=== PATIENT | female | born 1955 | race Caucasian/White ===

== ENCOUNTER 2017-06-29 22:06 | Emergency (ER) | payer OTHER ==
[~2017-06-29] VITALS: Ht 172.7 cm; Wt 110.2 kg
[~2017-06-29 22:06] MED LIST: ACTOS15 M1 PO; AMLODIPINE10 MG PO; ATORVASTATIN CA40 M1 PO; BAYER ASPIRIN C81 MG PO; CARVEDILOL PO; CARVEDILOL6.25 MG PO; CELEXA10 MG; CELEXA20 MG PO; CIPRO500 MG PO; CIPROFLOXACIN500 MG PO; CLONIDINE0.2 MG PO; COREG6.25 MG PO; DARVOCET N 1001 TAB PO; DICLOFENAC POT.50 MG PO; ECPIRIN325 MG PO; FARXIGA5 M1 PO; GLIMEPIRIDE4 M1 PO; GLYBURIDE1 CRY; GLYBURIDE5 MG PO; HYDROCHLOROTHIA25 M1 PO; LEVOTHYROXIN0.088 M1 PO; LEVOTHYROXINE0.05 MG PO; LISINOPRIL10 MG PO; LISINOPRIL2.5 MG; LISINOPRIL40 MG PO; METFORMIN1000 MG PO; METFORMIN500 MG PO; MOTRIN400 MG PO; MOTRIN800 MG PO; Oxycodone/Apap1 TA1; PEPCID20 MG PO; PRAVACHOL40 MG PO; SERTRALINE HYDR50 MG PO; TRAD5TAB1 PO; VICODIN 5/500 505 MG PO; VITAMINS FOR HA1 CAP PO
[2017-06-29] MEDS ORDERED: CEPHALEXIN500 M1 PO (22:19)
== END 2017-06-29 22:52 | disposition home or self-care (01) ==
LOC: ED 22:06
DX: S50.862A Insect bite (nonvenomous) of left forearm, initial encounter (principal); E11.65 Type 2 diabetes mellitus with hyperglycemia; W57.XXXA Bitten or stung by nonvenomous insect and other nonvenomous arthropods, initial encounter; Y93.89 Activity, other specified; Y92.89 Other specified places as the place of occurrence of the external cause; Y99.8 Other external cause status

== ENCOUNTER 2018-06-10 20:34 | Inpatient (IN) | payer OTHER ==
[~2018-06-10] VITALS: Ht 172.7 cm; Wt 104.1 kg
--- NOTE | ~2018-06-10 | EKG ---
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: Lyudmila Perez : 1955 Requested By: YOUSUF FINCH Order Number: [id number] Reading MD: Hudson Mejía MD Measurements Intervals [place] Rate: 61 P: 116 [place]: 158 QRS: 30 QRSD: 97 T: 195 QT: 392 QTc: 395 Interpretive Statements Sinus rhythm Repol abnrm suggests ischemia, anterolateral Minimal ST elevation, anterior leads Baseline wander in lead(s) V3 Compared to ECG 05/21/2018 00:54:36 ST (T wave) deviation now present Atrial premature complex(es) no longer present Possible ischemia still present Electronically Signed On 06-14-2018 4:00:05 PDT by Hudson Mejía MD CM:EKGRPT:ELECTROCARDIOGRAM REPORT [id number] 0400 YOUSUF DURANT DRAFT REPORT YOUSUF FINCH DO
--- NOTE | ~2018-06-10 | CON ---
[place], [place] REPORT OF CONSULTATION NAME: [facility]ED [facility]AVEZ [id number] UNIT #: [id number] ROOM: 526 DOCTOR: FRANCHESKA COLE MD BIRTHDATE: [birth year] DOS: 06/11/2018 HISTORY OF PRESENT ILLNESS: This is a 63-year-old -Q[place] woman with a history of coronary artery disease. She had a 3-vessel coronary artery bypass graft surgery in 2012 in [place] and presented to this hospital 05/20/2018 with dizziness, weakness, and bradycardia. She has second degree heart block. Her troponin level was slightly elevated and she was taken to [facility] where a diagnostic heart cath was performed and the coronary was stented. The findings were patent left main coronary artery, 100% occlusion of the LAD with widely patent MAGUIRE to this vessel, 100% occlusion of proximal circumflex artery with patent vein graft to OM branch of the circumflex, but with 95% stenosis just distal to the anastomotic site, which was treated with a 2.25 x 20 mm drug-eluting stent reducing the stenosis to 0%. The right coronary artery had 100% occlusion in the mid segment with a patent vein graft to the posterior descending artery of the right coronary artery. She now presented to the hospital because of increasing shortness of breath and also fatigue and shortness of breath. She had shortness of breath even before intervention was done and shortness of breath persisted. When she walks, she gets fairly tired and short of breath. She has not had any PND, orthopnea, or swelling of the lower extremities. Heart flips every now and then, but no rapid beat. There has not been any loss of consciousness. She is generally very tired and run down, very depressed. She lost her on 2017 and it was a sudden . He had enjoyed good health previously. She is having very tough time dealing with this. PAST MEDICAL HISTORY: Type 2 diabetes mellitus, essential hypertension, hyperlipidemia, coronary artery disease as described above. She has had appendectomy and couple of times and went to surgery for toenails. She has never had any kidney problems, COPD, or cancer. SOCIAL HISTORY: She never smoked cigarettes. No alcohol use. She lives at home alone. HOME MEDICATIONS: Amlodipine 5 mg daily, aspirin 81 daily, atorvastatin 80 daily, Zetia 10 mg daily, famotidine 20 mg b.i.d., gabapentin 300 q. 8h, hydrochlorothiazide 25 daily, levothyroxine 88 mcg daily, lisinopril 40 daily, metoprolol 12.5 mg daily, sertraline 100 mg daily, ticagrelor 90 mg b.i.d. and sublingual nitroglycerin p.r.n., insulin glargine, and insulin lispro. PHYSICAL EXAMINATION: GENERAL: This reveals a patient who is moderately obese. She is very pleasant, but under emotional distress. Her complexion is fine. There is no anemia, jaundice or cyanosis. There is no thyromegaly or finger clubbing. VITAL SIGNS: Temperature is normal at 98.1 degrees, pulse is 72 and regular, blood pressure 156/72. NECK: JVP is normal. AJR is negative. There is no carotid bruit. HEART: There is no cardiomegaly. Murmurs are present. Excellent pedal pulses and no edema of the lower extremities: [place], [place] REPORT OF CONSULTATION NAME: NED CHAVEZ UNIT #: [id number] ROOM: 526 DOCTOR: FRANCHESKA COLE MD BIRTHDATE: [birth year] RESPIRATORY: Lungs are clear to percussion and auscultation with excellent breath sounds. ABDOMEN: Supple, nontender, and no organomegaly. There is no bruit or pulsatile mass. DIAGNOSTIC STUDIES: ECG shows normal sinus rhythm at 861 beats per minute with minimal ST segment depression V4-V6 and in 1 and aVL. These are chronic findings which she had even before heart catheterization was done last month (LAD had patent MAGUIRE graft with troponin I level is normal). IMPRESSION: 1. Dyspnea of exertion. This patient has normal LV systolic function with an LV ejection fraction of 65%, either it is diastolic dysfunction that is causing shortness of breath or more likely ticagrelor may be responsible for this as it is one of its side effects. 2. Hypertension, probably needs the better control. 3. Secondary heart block that she had last month has resolved and may have been ischemia driven. Her heart rate is fine now. RECOMMENDATIONS: 1. Discontinue ticagrelor and replace it clopidogrel [address] Gamino had discontinued metoprolol and placed her on carvedilol 6.25 mg b.i.d., which is appropriate. 3. She should continue on amlodipine, dose can be increased. Her blood pressure has not been controlled adequately in this diabetic patient. 4. From cardiac standpoint, the patient can be discharged home after ambulation. 4. Bereavement. She is still in tremendous amount of emotional pain from her 's . I think some formal counseling may be of some help to her. I thank you for this consult. FRANCHESKA COLE MD CM:CONSTR:REPORT OF CONSULTATION 1058 06/11/18 1530 interface
--- NOTE | ~2018-06-10 | EKG ---
[place], [place] ELECTROCARDIOGRAM REPORT NAME: NED CHAVEZ UNIT #: [id number] ROOM: 526 DOCTOR: ARNOLD DRAFT REPORT BIRTHDATE: [birth year] [facility] Test Date: 2018-06-11 Test Time: 03:53:02 Pat Name: NED CHAVEZ Department: Room: 526 Gender: F Vocational Evaluator: : 1955 Requested By: YOUSUF FINCH Order Number: [id number] Reading MD: Hudson Mejía MD Measurements Intervals [place] Rate: 63 P: 126 GA: 150 QRS: 42 QRSD: 99 T: 187 QT: 439 QTc: 450 Interpretive Statements Sinus rhythm Nonspecific repol abnormality, diffuse leads Baseline wander in lead(s) V6 Compared to ECG 05/21/2018 00:54:36 Atrial premature complex(es) no longer present Possible ischemia no longer present Electronically Signed On 06-14-2018 4:00:11 PDT by Hudson Mejía MD CM:EKGRPT:ELECTROCARDIOGRAM REPORT [id number] 0400 YOUSUF DURANT DRAFT REPORT YOUSUF FINCH DO
--- NOTE | ~2018-06-10 | EKG ---
[place], [place] ELECTROCARDIOGRAM REPORT NAME: NED CHAVEZ UNIT #: [id number] ROOM: 526 DOCTOR: ARNOLD DRAFT REPORT BIRTHDATE: [birth year] [facility] Test Date: 2018-06-10 Test Time: 21:05:27 Pat Name: NED CHAVEZ Department: Room: 526 Gender: F Owner Operator: ARTURO : 1955 Requested By: MARK NASSAR PA-C Order Number: [id number] Reading MD: Hudson Mejía MD Measurements Intervals [place] Rate: 56 P: 37 ID: 157 QRS: 20 QRSD: 91 T: 161 QT: 420 QTc: 406 Interpretive Statements Sinus rhythm Atrial premature complex Repol abnrm suggests ischemia, lateral leads Compared to ECG 05/21/2018 00:54:36 No significant changes Electronically Signed On 06-16-2018 8:29:37 PDT by Hudson Mejía MD CM:EKGRPT:ELECTROCARDIOGRAM REPORT 04 [id number] MARK NASSAR PA-C EPIPHANY DRAFT REPORT MARK NASSAR PA-C
[~2018-06-10 20:34] MED LIST changes: +ADMELOG SO100 UNIT/1 SQ; +ASPIRIN81 M1 PO; +CEPHALEXIN500 M1 PO; -ECPIRIN325 MG PO; +NEURONTIN300 MG PO; +NITROGLYCERIN0.4 MG SL; +SERTRALINE HYD100 MG PO; -SERTRALINE HYDR50 MG PO; +Synthroid,Levo88 MCG PO; +ZETIA10 MG PO
[2018-06-10 20:37] VITALS: BP 145/54
[2018-06-10 21:34] LABS: BASO # 0.1 10*3/uL (0.0-0.1); BASO % 0.6 % (0.0-1.0); EOS # 0.5 10*3/uL (0.0-0.4); EOS % 5.2 % (1.0-4.0); HEMATOCRIT 36.1 % (37.0-47.0); HEMOGLOBIN 11.6 g/dl (12.0-16.0); LYMPH # 2.1 10*3/uL (1.3-4.4); LYMPH % 24.1 % (27.0-41.0); MEAN CELL VOLUME 89.1 fl (81.0-99.0); MEAN CORPUSCULAR HGB 28.6 pg (27.0-31.0); MEAN CORPUSCULAR HGB CONC 32.1 g/dl (33.0-37.0); MEAN PLATELET VOLUME 10.1 fl (9.6-12.3); MONO # 0.6 10*3/uL (0.1-1.0); MONO % 6.7 % (3.0-9.0); NEUT # 5.4 10*3/uL (2.3-7.9); NEUT % 62.9 % (47.0-73.0); PLATELET COUNT AUTOMATED 271 10*3/uL (130-400); RED BLOOD COUNT 4.05 10*6/uL (4.10-5.10); RED CELL DISTRI WIDTH 13.3 % (0-14.5); WHITE BLOOD COUNT 8.6 10*3/uL (4.8-10.8)
[2018-06-10 21:40] VITALS: BP 143/65
[2018-06-10 21:57] LABS: ALBUMIN 2.9 gm/dl (3.1-4.5); CREATININE 1.13 mg/dL (0.55-1.02); POTASSIUM 3.7 mmol/L (3.5-5.1); TOTAL PROTEIN 7.3 gm/dL (6.4-8.2); TROPONIN I 0.024 ng/ml (<0.045)
[2018-06-10 22:37] VITALS: BP 150/74
--- NOTE | 2018-06-10 22:53 | NUR ---
PT IN BED IN LOW FOWLERS POSITION OF COMFORT DAUGHTER AT BEDSIDE PT DENIES ANY SHORTNESS OF BREATH OF DISCOMFORT WHILE AT REST BED IN LOWEST POSITION BED RAIL UP CALL EID IN REACH PT HAS NO REQUESTS AT THIS TIME
[2018-06-10 23:42] VITALS: BP 150/74
[2018-06-11] VITALS: BP 156/72
--- NOTE | 2018-06-11 00:10 | NUR ---
A 63, admitted to 5E, under the services of ERNIE Pierce DO with a diagnosis of HX. CORONARY ARTERY STENT PLACEMENT/DYSPNEA. Chief complaint is SHORTNESS OF BREATH. Patient arrived via stretcher from ER. Monitor applied. Initial assessment completed. Vital signs taken and recorded. ERNIE PIERCE DO notified of admission to the unit. Orders received. See assessment for past medical history, medications and allergies. Patient and/or family oriented to unit. visitation policy reviewed. Clothing/patient valuable form completed. KIMBERLY GRIGSBY
--- NOTE | 2018-06-11 01:50 | NUR ---
DR. FINCH AWARE OF [facility] REC BEING UP TO DATE.
[2018-06-11] MEDS ORDERED: LANTUS SOL100 UNIT/1 SQ ×2 (02:04→13:09)
[2018-06-11] MEDS ORDERED: LOPRESSOR25 MG PO (02:08)
[2018-06-11] MEDS ORDERED: BRILINTA90 M1 PO (02:08)
[2018-06-11] MEDS ORDERED: NORVASC5 MG PO (02:10)
[2018-06-11 06:22] LABS: BASO # 0.1 10*3/uL (0.0-0.1); BASO % 0.5 % (0.0-1.0); EOS # 0.1 10*3/uL (0.0-0.4); HEMATOCRIT 38.6 % (37.0-47.0); HEMOGLOBIN 12.1 g/dl (12.0-16.0); LYMPH # 1.2 10*3/uL (1.3-4.4); LYMPH % 12.2 % (27.0-41.0); MEAN CELL VOLUME 88.9 fl (81.0-99.0); MEAN CORPUSCULAR HGB 27.9 pg (27.0-31.0); MEAN CORPUSCULAR HGB CONC 31.3 g/dl (33.0-37.0); MEAN PLATELET VOLUME 10.5 fl (9.6-12.3); MONO # 0.1 10*3/uL (0.1-1.0); MONO % 1.4 % (3.0-9.0); NEUT # 8.1 10*3/uL (2.3-7.9); NEUT % 84.6 % (47.0-73.0); PLATELET COUNT AUTOMATED 273 10*3/uL (130-400); RED BLOOD COUNT 4.34 10*6/uL (4.10-5.10); RED CELL DISTRI WIDTH 13.3 % (0-14.5); WHITE BLOOD COUNT 9.6 10*3/uL (4.8-10.8)
[2018-06-11 06:54] LABS: BUN 26 mg/dl (7-24); CHLORIDE 109 mmol/L (98-107); CHOLESTEROL 125 mg/dL (<200); CREATININE 1.06 mg/dL (0.55-1.02); HDL CHOLESTEROL 48 mg/dl (40-60); LDL CHOLESTEROL 57 mg/dL (9-159); PHOSPHOROUS 2.6 mg/dL (2.5-4.9); SODIUM 140 mmol/L (136-145); TRIGLYCERIDES 102 mg/dl (<150); VLDL CHOLESTEROL 20 mg/dL (6-40)
[2018-06-11 07:01] LABS: THYROID STIM HORMONE (HS) 0.131 uIU/ml (0.358-4.75)
[2018-06-11 08:00] VITALS: BP 142/58
--- NOTE | 2018-06-11 08:30 | NUR ---
DR QUIÑONEZ CALLED CONSULT INFO GIVEN, NEW ORDERS RECEIVED.
[2018-06-11 12:00] VITALS: BP 128/67
[2018-06-11] MEDS ORDERED: CLOPIDOGREL75 MG PO (13:09)
[2018-06-11 16:00] VITALS: BP 141/60
--- NOTE | 2018-06-11 19:20 | NUR ---
PT IS AWAKE AND SITTING UP IN BED. NO S/S OF DISTRESS NOTED. WILL CONTINUE TO MONITOR.
--- NOTE | 2018-06-11 19:38 | NUR ---
24 HR CHART CHECK COMPLETE.
--- NOTE | 2018-06-11 19:38 | NUR ---
24 HR CHART CHECK COMPLETE.
[2018-06-11 20:57] VITALS: BP 152/68
[2018-06-12] VITALS: BP 124/58
[2018-06-12 08:00] VITALS: BP 129/50
--- NOTE | 2018-06-12 08:15 | NUR ---
PATIENT RESTING QUIETLY IN BED. NO DISTRESS NOTED. RESPIRATIONS EASY, REGULAR ON RA. DENIES ANY SOB. DENIES ANY PAIN/DISCOMFORT AT THIS TIME. EAGER FOR DISCHARGE. WILL CONTINUE TO MONITOR. VSS. CALL LIGHT WITHIN REACH.
[2018-06-12 11:59] VITALS: BP 130/51
--- NOTE | 2018-06-12 12:35 | NUR ---
Discharge instructions reviewed with patient/family. Patient receptive and verbalizes understanding. Follow-up care arranged. Written instructions given to patient/family. JOSH HARRIS.
== END 2018-06-12 13:25 | disposition home or self-care (01) | DRG 880 ==
LOC: ED 20:34 → EDHOLD 23:08 → 5E 23:43
PROVIDERS: Physician Assistant; Student in an Organized Health Care Education/Training Program; ADMIT Emergency Medicine
DX: F41.9 Anxiety disorder, unspecified (principal); E44.0 Moderate protein-calorie malnutrition; N30.00 Acute cystitis without hematuria; R07.89 Other chest pain; R00.1 Bradycardia, unspecified; D64.9 Anemia, unspecified; E87.8 Other disorders of electrolyte and fluid balance, not elsewhere classified; E11.65 Type 2 diabetes mellitus with hyperglycemia; E03.9 Hypothyroidism, unspecified; E78.5 Hyperlipidemia, unspecified; I25.10 Atherosclerotic heart disease of native coronary artery without angina pectoris; I44.1 Atrioventricular block, second degree; F32.9 Major depressive disorder, single episode, unspecified; N18.3 Chronic kidney disease, stage 3 (moderate); I12.9 Hypertensive chronic kidney disease with stage 1 through stage 4 chronic kidney disease, or unspecified chronic kidney disease; E11.22 Type 2 diabetes mellitus with diabetic chronic kidney disease; E66.9 Obesity, unspecified; Z95.1 Presence of aortocoronary bypass graft; Z91.041 Radiographic dye allergy status; Z88.5 Allergy status to narcotic agent; Z79.899 Other long term (current) drug therapy; Z79.4 Long term (current) use of insulin; I25.2 Old myocardial infarction; Z98.891 History of uterine scar from previous surgery; Z90.49 Acquired absence of other specified parts of digestive tract; Z95.5 Presence of coronary angioplasty implant and graft; Z79.82 Long term (current) use of aspirin; Z68.34 Body mass index [BMI] 34.0-34.9, adult

== ENCOUNTER 2018-06-20 03:47 | Inpatient (IN) | payer OTHER ==
[2018-06-20] VITALS (11 sets, daily range): BP systolic 118–159; BP diastolic 47–92
[~2018-06-20] VITALS: Ht 172.7 cm; Wt 106.3 kg
--- NOTE | ~2018-06-20 | EKG ---
[place], [place] ELECTROCARDIOGRAM REPORT NAME: NED CHAVEZ UNIT #: [id number] ROOM: 515 DOCTOR: ARNOLD DRAFT REPORT BIRTHDATE: [birth year] [facility] Test Date: 2018-06-20 Test Time: 03:51:28 Pat Name: NED CHAVEZ Department: Room: [facility] Gender: F Opto Mechanical Technician: Lyudmila Perez : 1955 Requested By: DANA SCHWARTZ Order Number: [id number] Reading MD: Cherri Rucker MD Measurements Intervals [place] Rate: 134 P: SD: QRS: 44 QRSD: 88 T: 228 QT: 252 QTc: 376 Interpretive Statements Atrial fibrillation Repol abnrm suggests ischemia, diffuse leads Compared to ECG 06/11/2018 03:53:02 Possible ischemia now present Sinus rhythm no longer present Electronically Signed On 06-22-2018 14:43:15 PDT by Cherri Rucker MD CM:EKGRPT:ELECTROCARDIOGRAM REPORT [id number] 1443 DANA DURANT DRAFT REPORT DANA SCHWARTZ DO
--- NOTE | ~2018-06-20 | EKG ---
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
--- NOTE | ~2018-06-20 | CON ---
[place], [place] REPORT OF CONSULTATION [id number] UNIT #: [id number] ROOM: 515 DOCTOR: FRANCHESKA COLE MD BIRTHDATE: [birth year] DOS: This patient was discharged from this hospital on 06/12/2018. HISTORY OF PRESENT ILLNESS: She is a 63-year-old -Luxembourger woman who has not had any atrial fibrillation previously. She does have coronary artery disease and had a 3-vessel CABG in 2012 in [place] and in May of this year, she was found to be in second-degree heart block and was taken to [facility], where she had a diagnostic heart catheterization because her troponin level was slightly increased and she had EKG abnormality. She was found to have a totally occluded LAD with a widely patent MAGUIRE graft to it and occluded RCA with widely patent vein graft to it and occluded circumflex with patent vein graft to OM branch and the branch had severe stenosis and a 2.25 x 20 mm drug-eluting stent was deployed at that time. LV ejection fraction was normal. Second-degree heart block pretty much resolved. She had a temporary pacemaker for a couple of days. She has type 2 diabetes mellitus, essential hypertension, hyperlipidemia, has had appendectomy in the past, but no kidney problems, COPD. She does not smoke nor does she drink alcoholic beverages. She lives at home. She was discharged from this hospital about 10 days ago. Last night, she woke up with palpitation where her heart was racing and did not have any chest pain, but perhaps she was slightly short of breath and her daughter brought her to the Emergency Department, where she was found to be in atrial fibrillation. She was given 20 mg of diltiazem intravenously and then reverted to normal sinus rhythm without any recurrence. She has occasional flipping of the heart even now, but had no chest pain or breathing difficulty. No PND, orthopnea, or swelling of the lower extremities. HOME MEDICATIONS: Include amlodipine 5 mg daily, aspirin 81 daily, atorvastatin 80 at bedtime, clopidogrel 75 mg daily (when she was here 10 days ago, she was complaining of dyspnea, which I thought was due to Brilinta which was discontinued and the symptoms resolved), Zetia 10 mg daily, famotidine 20 mg b.i.d., gabapentin 300 q.8h., hydrochlorothiazide 25 daily, levothyroxine 88 mcg daily, lisinopril 40 mg daily, metoprolol 12.5 mg b.i.d., sertraline 100 mg daily and sublingual nitroglycerin p.r.n., and also takes insulin as Lantus SoloSTAR. PHYSICAL EXAMINATION: GENERAL: The patient is moderately obese, very pleasant, alert. She has got a great smile. She is not anemic, not cyanotic. She is not diaphoretic. VITAL SIGNS: Temperature 98 degrees, pulse is 60 and regular, blood pressure 132/72. NECK: Normal JVP. No bruit in the neck. LUNGS: Clear lungs. No murmurs. HEART: There is no edema in lower extremities. DIAGNOSTIC STUDIES: First ECG in the ER showed atrial fibrillation with ventricular rate of 134 beats per minute with mild ST segment depression in the lateral and inferior leads. She went back to normal sinus rhythm. The subsequent ECG showed minimal ST segment depression in lateral leads, which was [place], [place] REPORT OF CONSULTATION NAME: NED CHAVEZ UNIT #: [id number] ROOM: [facility] DOCTOR: FRANCHESKA COLE MD BIRTHDATE: [birth year] present on previous ECGs. Troponin I level is 0.026, 0.047 and 0.056. IMPRESSION: 1. This patient has paroxysmal atrial fibrillation and is back in normal sinus rhythm. 2. Slightly increased troponin I level, is most likely due to atrial fibrillation with rapid ventricular rate. 3. Coronary artery disease, status post coronary artery bypass graft and a stent to OM branch of the circumflex through the vein graft. RECOMMENDATIONS: This patient's CHADS2-VASC is high and she warrants chronic warfarin therapy. Therefore, Eliquis 5 mg b.i.d. is being started and she needs to be ambulated. An echocardiogram was ordered today and I will review that. She should be able to go home tomorrow. I thank you for this consult. FRANCHESKA COLE MD CM:CONSTR:REPORT OF CONSULTATION 1154 06/21/18 0630 interface
--- NOTE | ~2018-06-20 | PR ---
[place], [place] PROGRESS NOTE NAME: [facility]ED [facility]Z [id number] UNIT #: [id number] ROOM: 515 DOCTOR: VASQUEZ ENRIQUE MD BIRTHDATE: [birth year] DOS: 06/21/2018 SUBJECTIVE: The patient of mine who is being followed by me for many years and that she had an intervention by Dr. Rucker who was director motion picture for me at [place] when she had an acute MT and underwent an intervention and followed that she had significant asystole and respiratory arrest and then she got improved and she was seen by look out tower fire watcher. The patient was in sinus rhythm also had a Holter monitor remained in sinus rhythm. The patient had a brief episode of atrial fibrillation here. Her ejection fraction is very well preserved. She has been started on Eliquis. She was seen by Dr. Rucker who was covering for me yesterday. Right now, she is staying in sinus rhythm. REVIEW OF SYSTEMS: A 6-8 systems reviewed. OBJECTIVE: VITAL SIGNS: Blood pressure is 130/50, heart rate is 55 and sinus. HEENT: Unremarkable. LUNGS: Clear. HEART: Sounds are regular. ABDOMEN: Soft, nontender. NEUROLOGIC: Stable. LABORATORY DATA: Hemoglobin 11.7, hematocrit 36.8. Electrolytes are today's labs are pending. Troponin the peak was 0.54. EKG shows sinus rhythm with nonspecific ST-T changes. IMPRESSION: The patient with paroxysmal atrial fibrillation back into sinus rhythm, history of bypass surgery, recent intervention. The patient has been started on Eliquis. Heart rate is very well controlled. She is already on amlodipine, atorvastatin, metoprolol 12.5 daily, clopidogrel 75 daily and a baby aspirin. Increase activity and we will follow up upon discharge. VASQUEZ ENRIQUE MD CM:PNTRANS [id number] VASQUEZ ENRIQUE MD 06/21/18 0908 interface
--- NOTE | ~2018-06-20 | EKG ---
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
[~2018-06-20 03:47] MED LIST changes: +BRILINTA90 M1 PO; +CLOPIDOGREL75 MG PO; +LANTUS SOL100 UNIT/1 SQ; +LOPRESSOR25 MG PO; +NORVASC5 MG PO
[2018-06-20 04:06] LABS: BASO % 0.5 % (0.0-1.0); EOS # 0.5 10*3/uL (0.0-0.4); HEMATOCRIT 39.6 % (37.0-47.0); HEMOGLOBIN 12.6 g/dl (12.0-16.0); LYMPH # 2.7 10*3/uL (1.3-4.4); LYMPH % 33.3 % (27.0-41.0); MEAN CELL VOLUME 88.8 fl (81.0-99.0); MEAN CORPUSCULAR HGB 28.3 pg (27.0-31.0); MEAN CORPUSCULAR HGB CONC 31.8 g/dl (33.0-37.0); MEAN PLATELET VOLUME 10.4 fl (9.6-12.3); MONO # 0.6 10*3/uL (0.1-1.0); MONO % 7.3 % (3.0-9.0); NEUT # 4.3 10*3/uL (2.3-7.9); NEUT % 52.5 % (47.0-73.0); PLATELET COUNT AUTOMATED 265 10*3/uL (130-400); RED BLOOD COUNT 4.46 10*6/uL (4.10-5.10); RED CELL DISTRI WIDTH 13.1 % (0-14.5); WHITE BLOOD COUNT 8.2 10*3/uL (4.8-10.8)
[2018-06-20 04:16] LABS: ACT PARTIAL THROMBO TIME 23.5 SECONDS (20.8-31.5)
[2018-06-20 04:23] LABS: ALBUMIN 3.1 gm/dl (3.1-4.5); ALKALINE PHOSPHATASE 101 U/L (45-117); BUN 23 mg/dl (7-24); CHLORIDE 113 mmol/L (98-107); CREATININE 1.08 mg/dL (0.55-1.02); POTASSIUM 3.6 mmol/L (3.5-5.1); SGOT/AST 13 IU/L (3-35); SGPT/ALT 20 U/L (12-78); SODIUM 143 mmol/L (136-145); TOTAL PROTEIN 7.4 gm/dL (6.4-8.2)
[2018-06-20 04:24] LABS: TROPONIN I 0.026 ng/ml (<0.045)
--- NOTE | 2018-06-20 04:29 | NUR ---
PLACED PATIENT ON 2L VIA NASAL CANNULA AT THIS TIME FOR COMFORT. PER PATIENT HEART "JUMPING" MAKES HER FEEL IF SHE IS UNABLE TO GET A DEEP BREATH.
[2018-06-20] MEDS ORDERED: LANTUS SOL100 UNIT/1 SQ (06:45)
--- NOTE | 2018-06-20 06:59 | NUR ---
A 63, admitted to , under the services of ASHLEY Bennett DO with a diagnosis of AFIB W/ RVR. Chief complaint is HEART PALPITATIONS. Patient arrived via ambulatory from ER. Monitor applied. Initial assessment completed. Vital signs taken and recorded. ASHLEY BENNETT DO notified of admission to the unit. Orders received. See assessment for past medical history, medications and allergies. Patient and/or family oriented to unit. [facility] visitation policy reviewed. Clothing/patient valuable form completed. CHERIE ALBARADO
--- NOTE | 2018-06-20 06:59 | NUR ---
DR COLE NOTIFIED OF CONSULT.
--- NOTE | 2018-06-20 10:55 | NUR ---
dr taylor aware of elevated trop
[2018-06-21] VITALS: BP 137/51
--- NOTE | 2018-06-21 05:00 | NUR ---
24 HR chart check completed.
--- NOTE | 2018-06-21 05:02 | NUR ---
24 HR chart check completed.
[2018-06-21 06:57] LABS: BASO # 0.1 10*3/uL (0.0-0.1); BASO % 0.7 % (0.0-1.0); EOS # 0.6 10*3/uL (0.0-0.4); EOS % 7.6 % (1.0-4.0); HEMATOCRIT 36.8 % (37.0-47.0); HEMOGLOBIN 11.7 g/dl (12.0-16.0); LYMPH # 2.9 10*3/uL (1.3-4.4); LYMPH % 38.6 % (27.0-41.0); MEAN CELL VOLUME 88.5 fl (81.0-99.0); MEAN CORPUSCULAR HGB 28.1 pg (27.0-31.0); MEAN CORPUSCULAR HGB CONC 31.8 g/dl (33.0-37.0); MEAN PLATELET VOLUME 10.6 fl (9.6-12.3); MONO # 0.6 10*3/uL (0.1-1.0); MONO % 7.4 % (3.0-9.0); NEUT # 3.4 10*3/uL (2.3-7.9); NEUT % 45.4 % (47.0-73.0); PLATELET COUNT AUTOMATED 254 10*3/uL (130-400); RED BLOOD COUNT 4.16 10*6/uL (4.10-5.10); RED CELL DISTRI WIDTH 13.2 % (0-14.5); WHITE BLOOD COUNT 7.4 10*3/uL (4.8-10.8)
[2018-06-21 07:27] LABS: BUN 20 mg/dl (7-24); CHLORIDE 113 mmol/L (98-107); CREATININE 0.88 mg/dL (0.55-1.02); PHOSPHOROUS 2.6 mg/dL (2.5-4.9); POTASSIUM 3.6 mmol/L (3.5-5.1); SODIUM 142 mmol/L (136-145)
[2018-06-21 07:43] LABS: FREE T4 1.12 ng/dl (0.76-1.46)
[2018-06-21 07:48] LABS: THYROID STIM HORMONE (HS) 0.378 uIU/ml (0.358-4.75)
--- NOTE | 2018-06-21 11:34 | NUR ---
Principle Software Engineer in to talk to patient. Patient states lives at HOME with ALONE. There are OUTSIDE steps in the home. Physician: GLORIA PANDA Pharmacy: [facility] Home health services: [facility] Patient's level of ADLs: INDEPENDENT Patient has working utilities: YES DME: NONE Follow-up physician's appointment after d/c: WILL BE MADE BY HOSPITALIST NURSE DIRECTOR ON DISCHARGE Does patient want to access PORTAL?: NO Discharge plan PT LIVES AT HOME ALONE AND CURRENTLY HAS [email or web address]. PT STATES SHE PLANS TO RETURN HOME WITH HOME HEALTH ON DISCHARGE. WILL CONTINUE TO FOLLOW. STATE SHE HAS A RIDE HOME. . ALISA DILLON
[2018-06-21] MEDS ORDERED: XARE20MG PO (11:45)
--- NOTE | 2018-06-21 11:53 | NUR ---
REFERRAL FAXED TO [facility] TO RESUME PRIOR TO ADMISSION.
[2018-06-21 12:00] VITALS: BP 133/80
--- NOTE | 2018-06-21 14:27 | NUR ---
Discharge instructions reviewed with patient/family. Patient receptive and verbalizes understanding. Follow-up care arranged. Written instructions given to patient/family.IV REMOVED MARCOS MCQUEEN
== END 2018-06-21 14:27 | disposition home or self-care (01) | DRG 309 ==
LOC: ED 03:47 → 5E 05:04 → EDHOLD 05:04 → 5E 05:26
PROVIDERS: Emergency Medicine; Student in an Organized Health Care Education/Training Program; ADMIT Internal Medicine
DX: I48.0 Paroxysmal atrial fibrillation (principal); E44.0 Moderate protein-calorie malnutrition; I24.8 Other forms of acute ischemic heart disease; E87.8 Other disorders of electrolyte and fluid balance, not elsewhere classified; N18.3 Chronic kidney disease, stage 3 (moderate); I25.10 Atherosclerotic heart disease of native coronary artery without angina pectoris; E78.5 Hyperlipidemia, unspecified; E11.65 Type 2 diabetes mellitus with hyperglycemia; I12.9 Hypertensive chronic kidney disease with stage 1 through stage 4 chronic kidney disease, or unspecified chronic kidney disease; E03.9 Hypothyroidism, unspecified; E11.22 Type 2 diabetes mellitus with diabetic chronic kidney disease; F32.9 Major depressive disorder, single episode, unspecified; E66.9 Obesity, unspecified; Z79.4 Long term (current) use of insulin; Z68.35 Body mass index [BMI] 35.0-35.9, adult; Z95.1 Presence of aortocoronary bypass graft; Z91.041 Radiographic dye allergy status; I25.2 Old myocardial infarction; Z87.440 Personal history of urinary (tract) infections; Z98.891 History of uterine scar from previous surgery; Z82.49 Family history of ischemic heart disease and other diseases of the circulatory system; Z83.3 Family history of diabetes mellitus; Z88.6 Allergy status to analgesic agent; Z79.82 Long term (current) use of aspirin; Z79.899 Other long term (current) drug therapy

== ENCOUNTER → 2019-01-19 | Outpatient (CLI) | payer OTHER ==
[~2019-01-19] MED LIST changes: +XARE20MG PO
== END | disposition home or self-care (01) ==
LOC: LAB 11:16
DX: I12.9 Hypertensive chronic kidney disease with stage 1 through stage 4 chronic kidney disease, or unspecified chronic kidney disease (principal); E11.22 Type 2 diabetes mellitus with diabetic chronic kidney disease; E11.42 Type 2 diabetes mellitus with diabetic polyneuropathy; N18.3 Chronic kidney disease, stage 3 (moderate); E03.9 Hypothyroidism, unspecified; E78.2 Mixed hyperlipidemia; I48.91 Unspecified atrial fibrillation

== ENCOUNTER 2019-04-01 18:16 | Inpatient (IN) | payer OTHER ==
[~2019-04-01] VITALS: Ht 172.7 cm; Wt 113.6 kg
[2019-04-01 18:16] VITALS: BP 152/94
[2019-04-01 18:34] LABS: BASO % 0.4 % (0.0-1.0); EOS # 0.2 10*3/uL (0.0-0.4); EOS % 1.8 % (1.0-4.0); HEMATOCRIT 46.8 % (37.0-47.0); HEMOGLOBIN 14.8 g/dl (12.0-16.0); LYMPH # 2.4 10*3/uL (1.3-4.4); LYMPH % 21.8 % (27.0-41.0); MEAN CELL VOLUME 81.7 fl (81.0-99.0); MEAN CORPUSCULAR HGB 25.8 pg (27.0-31.0); MEAN CORPUSCULAR HGB CONC 31.6 g/dl (33.0-37.0); MEAN PLATELET VOLUME 10.8 fl (9.6-12.3); MONO # 0.6 10*3/uL (0.1-1.0); MONO % 5.1 % (3.0-9.0); NEUT # 7.8 10*3/uL (2.3-7.9); NEUT % 70.5 % (47.0-73.0); PLATELET COUNT AUTOMATED 236 10*3/uL (130-400); RED BLOOD COUNT 5.73 10*6/uL (4.10-5.10); RED CELL DISTRI WIDTH 15.3 % (0-14.5); WHITE BLOOD COUNT 11.1 10*3/uL (4.8-10.8)
[2019-04-01 18:45] LABS: ACT PARTIAL THROMBO TIME 30.7 SECONDS (20.0-32.1)
[2019-04-01 18:53] LABS: ALBUMIN 3.6 gm/dl (3.1-4.5); ALKALINE PHOSPHATASE 122 U/L (45-117); BUN 17 mg/dl (7-24); CHLORIDE 108 mmol/L (98-107); CREATININE 1.21 mg/dL (0.55-1.02); POTASSIUM 3.4 mmol/L (3.5-5.1); SGOT/AST 17 IU/L (3-35); SGPT/ALT 22 U/L (12-78); SODIUM 140 mmol/L (136-145); TOTAL PROTEIN 7.7 gm/dL (6.4-8.2)
[2019-04-01 18:55] LABS: TROPONIN I < 0.015 ng/ml (<0.045)
[2019-04-01 19:14] VITALS: BP 135/80
--- NOTE | 2019-04-01 19:20 | NUR ---
REPORT WAS RECIEVED FROM LUIS MANUEL ELIZALDE. PT IS RESTING IN ROOM COMFORTABLY WITH FAMILY AT BEDSIDE. CM SHOWS TACHYCARDIA 108BPM AND IRREGULAR. ALL OTHER VS STABLE AT THIS TIME. BED IS IN LOW POSITION. CALL EID WITHIN REACH. WILL CONTINUE TO MONITOR.
[2019-04-01 19:28] LABS: FREE T4 1.05 ng/dl (0.76-1.46)
[2019-04-01 19:33] LABS: THYROID STIM HORMONE (HS) 5.06 uIU/ml (0.358-4.75)
--- NOTE | 2019-04-01 19:58 | NUR ---
PT RESTING IN BED. CM NOW SHOWS AFIB WITH A HR OF 60. PT COMPLAINING OF SLIGHT DIZZINESS. BP IS 108/51. ALL VS STABLE. PT RESTING WITH FAMILY AT BEDSIDE. WILL CONTINUE TO MONITOR.
[2019-04-01 20:21] VITALS: BP 108/51
[2019-04-01 21:20] VITALS: BP 151/63
--- NOTE | 2019-04-01 21:20 | NUR ---
A 63, admitted to 4E, under the services of ADRIANE Landin DO with a diagnosis of CP R/O AC CO. Chief complaint is PALPITATIONS W/ SOB. Patient arrived via bed from ER. Monitor applied. Initial assessment completed. Vital signs taken and recorded. ADRIANE LANDIN DO notified of admission to the unit. Orders received. See assessment for past medical history, medications and allergies. Patient and/or family oriented to unit. Clothing/patient valuable form completed. AMARI DURAN
--- NOTE | 2019-04-01 21:25 | NUR ---
PATIENT PLACED ON ASSOCIATE PROFESSOR OF FORESTRY. HR IS NSR 60-70'S
[2019-04-01] MEDS ORDERED: XARELTO10 MG PO (21:52)
[2019-04-01 21:56] LABS: CLARITY CLEAR (CLEAR); COLOR YELLOW (YELLOW)
[2019-04-01 21:57] LABS: BILIRUBIN NEGATIVE (NEGATIVE); BLOOD NEGATIVE (NEGATIVE); GLUCOSE 1+ (NEGATIVE); KETONE 1+ (NEGATIVE); LEUKO ESTERASE 2+ (NEGATIVE); NITRITE NEGATIVE (NEGATIVE); SPECIFIC GRAVITY 1.015 (1.005-1.030); UROBILINOGEN 0.2 E.U./dl (0.2-1.0)
[2019-04-01 22:02] LABS: WBC 16-20 wbc/hpf (0-5)
[2019-04-01 22:03] LABS: BACTERIA 1+; EPITHELIAL CELLS 20-25
--- NOTE | 2019-04-01 22:03 | NUR ---
INFORMED THAT HOME MED ARE VERIFIED AND UDATED. STATED OK.
[2019-04-02] VITALS: BP 133/43
--- NOTE | 2019-04-02 06:26 | NUR ---
ON-CALL FOR IVA. STATED PATIENT WILL BE SEEN Wednesday.
[2019-04-02 07:07] LABS: BASO % 0.4 % (0.0-1.0); EOS # 0.2 10*3/uL (0.0-0.4); EOS % 2.2 % (1.0-4.0); HEMATOCRIT 41.3 % (37.0-47.0); HEMOGLOBIN 12.8 g/dl (12.0-16.0); LYMPH % 32.9 % (27.0-41.0); MEAN CELL VOLUME 82.9 fl (81.0-99.0); MEAN CORPUSCULAR HGB 25.7 pg (27.0-31.0); MEAN PLATELET VOLUME 10.6 fl (9.6-12.3); MONO # 0.6 10*3/uL (0.1-1.0); MONO % 6.7 % (3.0-9.0); NEUT # 5.3 10*3/uL (2.3-7.9); NEUT % 57.6 % (47.0-73.0); PLATELET COUNT AUTOMATED 205 10*3/uL (130-400); RED BLOOD COUNT 4.98 10*6/uL (4.10-5.10); RED CELL DISTRI WIDTH 15.5 % (0-14.5); WHITE BLOOD COUNT 9.1 10*3/uL (4.8-10.8)
[2019-04-02 07:33] LABS: CREATININE 1.11 mg/dL (0.55-1.02); POTASSIUM 3.3 mmol/L (3.5-5.1)
[2019-04-02 07:45] LABS: VITAMIN D, 25-HYDROXY 18.3 ng/mL (30-100)
[2019-04-02 08:00] VITALS: BP 154/52
--- NOTE | 2019-04-02 08:30 | NUR ---
Log Deck Tender in to talk to patient. Patient states lives at home alone with her family checking in on her. There are 4 steps outside the home. Physician: Cris Moore [facility]: Has had [facility] in the past Patient's level of ADLs: INDEPENDENT Patient has working utilities: yes DME: none Follow-up physician's appointment after d/c: will be made by the hospitalist nurse director upon discharge Does patient want to access PORTAL?: no Discharge plan discussed with patient. She lives at home alone with her family checking in on her. She states her daughter and son-in-law live right up the road from her. She is independent in her ADLs and ambulation. Discussed home health care services and she denies any home needs at this time. When medically stable she will be discharged to home. She states either her daughter or son-in-law will provide transportation on discharge. GIBRAN CALVIN
[2019-04-02 12:00] VITALS: BP 145/52
[2019-04-02 16:00] VITALS: BP 122/46
[2019-04-02 20:00] VITALS: BP 129/53
[2019-04-03] VITALS: BP 126/72
[2019-04-03 06:24] LABS: BASO % 0.4 % (0.0-1.0); EOS # 0.4 10*3/uL (0.0-0.4); EOS % 5.4 % (1.0-4.0); HEMATOCRIT 40.7 % (37.0-47.0); HEMOGLOBIN 12.5 g/dl (12.0-16.0); LYMPH # 2.8 10*3/uL (1.3-4.4); LYMPH % 40.1 % (27.0-41.0); MEAN CELL VOLUME 83.2 fl (81.0-99.0); MEAN CORPUSCULAR HGB 25.6 pg (27.0-31.0); MEAN CORPUSCULAR HGB CONC 30.7 g/dl (33.0-37.0); MEAN PLATELET VOLUME 11.3 fl (9.6-12.3); MONO # 0.4 10*3/uL (0.1-1.0); NEUT # 3.3 10*3/uL (2.3-7.9); PLATELET COUNT AUTOMATED 200 10*3/uL (130-400); RED BLOOD COUNT 4.89 10*6/uL (4.10-5.10); RED CELL DISTRI WIDTH 15.5 % (0-14.5); WHITE BLOOD COUNT 6.9 10*3/uL (4.8-10.8)
[2019-04-03 06:32] LABS: CREATININE 1.25 mg/dL (0.55-1.02); PHOSPHOROUS 2.9 mg/dL (2.5-4.9); POTASSIUM 3.7 mmol/L (3.5-5.1)
[2019-04-03 08:00] VITALS: BP 154/63
--- NOTE | 2019-04-03 08:30 | NUR ---
PT RESTING IN BED. RESP-EASY AND REGULAR. NO C/O AT THIS TIME. CALL LIGHT IN REACH. SEE SHIFT ASSESSMENT.
--- NOTE | 2019-04-03 09:00 | NUR ---
Sleeve Turner in to see patient. No new needs or request at this time. She denies any home needs. When medically stable she will be discharged to home. She is scheduled for an echo this morning.
--- NOTE | 2019-04-03 10:13 | NUR ---
SPOKE WITH LUIS MANUEL REGARDING PALLIATIVE CARE CONSULT.
--- NOTE | 2019-04-03 10:23 | NUR ---
Faxed palliative care referral to [facility] and notified palliative care nurse.
[2019-04-03 12:00] VITALS: BP 121/92
[2019-04-03] MEDS ORDERED: PROPAFENONE HC150 MG PO (13:02)
[2019-04-03] MEDS ORDERED: LOPRESSOR25 MG PO (13:02)
[2019-04-03] MEDS ORDERED: VITAMIN D32000 UNI1 PO (13:02)
--- NOTE | 2019-04-03 15:10 | NUR ---
Discharge instructions reviewed with patient/family. Patient receptive and verbalizes understanding. Follow-up care arranged. Written instructions given to patient/family. HEPLOCK REMOVED 2X2 APPLIED. MONITOR REMOVED. ALDO LIND
== END 2019-04-03 15:10 | disposition home health service (06) | DRG 201 ==
LOC: ED 18:16 → 4E 20:14 → EDHOLD 20:14 → 4E 20:45
PROVIDERS: Emergency Medicine; Physician Assistant; Student in an Organized Health Care Education/Training Program; ADMIT Internal Medicine
DX: I48.0 Paroxysmal atrial fibrillation (principal); N17.0 Acute kidney failure with tubular necrosis; E44.0 Moderate protein-calorie malnutrition; D72.829 Elevated white blood cell count, unspecified; E11.65 Type 2 diabetes mellitus with hyperglycemia; D72.810 Lymphocytopenia; E87.8 Other disorders of electrolyte and fluid balance, not elsewhere classified; E87.6 Hypokalemia; E11.22 Type 2 diabetes mellitus with diabetic chronic kidney disease; I12.9 Hypertensive chronic kidney disease with stage 1 through stage 4 chronic kidney disease, or unspecified chronic kidney disease; N18.3 Chronic kidney disease, stage 3 (moderate); F41.9 Anxiety disorder, unspecified; E83.52 Hypercalcemia; E03.9 Hypothyroidism, unspecified; E78.5 Hyperlipidemia, unspecified; I25.10 Atherosclerotic heart disease of native coronary artery without angina pectoris; F32.9 Major depressive disorder, single episode, unspecified; E66.9 Obesity, unspecified; Z91.041 Radiographic dye allergy status; Z88.5 Allergy status to narcotic agent; Z83.3 Family history of diabetes mellitus; Z79.4 Long term (current) use of insulin; Z82.49 Family history of ischemic heart disease and other diseases of the circulatory system; Z79.01 Long term (current) use of anticoagulants; Z79.899 Other long term (current) drug therapy; Z68.36 Body mass index [BMI] 36.0-36.9, adult

== ENCOUNTER 2019-04-12 18:50 | Inpatient (IN) | payer OTHER ==
[~2019-04-12] VITALS: Ht 172.7 cm; Wt 115.4 kg
[~2019-04-12 18:50] MED LIST changes: +PROPAFENONE HC150 MG PO; +VITAMIN D32000 UNI1 PO; +XARELTO10 MG PO
[2019-04-12 19:03] VITALS: BP 128/45
[2019-04-12 19:19] LABS: BASO % 0.2 % (0.0-1.0); EOS # 0.1 10*3/uL (0.0-0.4); EOS % 0.4 % (1.0-4.0); HEMATOCRIT 39.9 % (37.0-47.0); HEMOGLOBIN 12.4 g/dl (12.0-16.0); LYMPH # 1.1 10*3/uL (1.3-4.4); LYMPH % 8.2 % (27.0-41.0); MEAN CELL VOLUME 84.9 fl (81.0-99.0); MEAN CORPUSCULAR HGB 26.4 pg (27.0-31.0); MEAN CORPUSCULAR HGB CONC 31.1 g/dl (33.0-37.0); MEAN PLATELET VOLUME 10.6 fl (9.6-12.3); MONO # 0.5 10*3/uL (0.1-1.0); MONO % 3.3 % (3.0-9.0); NEUT # 12.1 10*3/uL (2.3-7.9); NEUT % 87.6 % (47.0-73.0); PLATELET COUNT AUTOMATED 195 10*3/uL (130-400); RED CELL DISTRI WIDTH 15.4 % (0-14.5); WHITE BLOOD COUNT 13.8 10*3/uL (4.8-10.8)
[2019-04-12 19:29] LABS: ACT PARTIAL THROMBO TIME 29.1 SECONDS (20.0-32.1)
[2019-04-12 19:39] LABS: ALBUMIN 3.1 gm/dl (3.1-4.5); ALKALINE PHOSPHATASE 108 U/L (45-117); BUN 15 mg/dl (7-24); CHLORIDE 113 mmol/L (98-107); CREATININE 1.03 mg/dL (0.55-1.02); POTASSIUM 3.7 mmol/L (3.5-5.1); SGOT/AST 14 IU/L (3-35); SGPT/ALT 20 U/L (12-78); SODIUM 143 mmol/L (136-145); TOTAL PROTEIN 6.8 gm/dL (6.4-8.2)
[2019-04-12 19:41] LABS: TROPONIN I < 0.015 ng/ml (<0.045)
[2019-04-12 20:25] VITALS: BP 153/69
[2019-04-12 20:34] VITALS: BP 142/68
--- NOTE | 2019-04-12 20:48 | NUR ---
pt resting in bed daughter at bedside call light in reach no complaints voiced
[2019-04-12 21:30] VITALS: BP 140/66
--- NOTE | 2019-04-12 21:31 | NUR ---
ATTEMPTED TO CALL REPORT BUT NURSE WAS NOT READY WILL TRY IN 10 MINUTES
--- NOTE | 2019-04-12 22:25 | NUR ---
PATIENT STATED THAT SHE WAS PUT ON RYTHMOL ONE WEEK AGO EVERY 8 HOURS AND WAS RECENTLY CHANGED TO EVERY 12 HOURS BUT WAS NOT TAKING IT CURRENTLY SHE FEELS THAT IT IS CAUSING HER CURRENT SYMPTOMS OF DIZZINESS AND FALLS.
--- NOTE | 2019-04-12 22:25 | NUR ---
ADMISSION COMPLETED AT 2224 WHEN PATIENT ARRIVED TO THE FLOOR NOT 2024 DOCUMENTED DUE TO IMCORRECT GONZALES-IN OF NUMBERS
--- NOTE | 2019-04-12 22:25 | NUR ---
BEDSIDE REPORT RECEIVED FROM BRODIE MIXON RN AT THIS TIME. PATIENT CARE ACCEPTED AND TAKEN OVER AT THIS TIME.
--- NOTE | 2019-04-12 22:25 | NUR ---
A 63, admitted to , under the services of STERLING Sumner DO with a diagnosis of NEAR SYNCOPE, NEAR FALL. Chief complaint is DIZZINESS. Patient arrived via stretcher from ER. Monitor applied. Initial assessment completed. Vital signs taken and recorded. STERLING SUMNER DO notified of admission to the unit. Orders received. See assessment for past medical history, medications and allergies. Patient and/or family oriented to . visitation policy reviewed. Clothing/patient valuable form completed. MERCEDES JOHN RN
--- NOTE | 2019-04-12 22:40 | NUR ---
ORTHOSTATIC BLOOD PRESSURES OBTAINED AND DOCUMENTED PER DR. CURTIS ASTUDILLO
--- NOTE | 2019-04-12 23:33 | NUR ---
MESSAGE LEFT WITH GIBRAN AT ANSWERING SERVICE FOR CONSULT TO DR. JAVIER REFERENCE SYNCOPE. NO RESPONSE FROM DR. JAVIER.
[2019-04-13] VITALS: BP 153/69
--- NOTE | 2019-04-13 00:10 | NUR ---
URINE SENT FOR UA/UC AT THIS TIME.
[2019-04-13 00:31] LABS: BILIRUBIN NEGATIVE (NEGATIVE); BLOOD NEGATIVE (NEGATIVE); CLARITY SL CLOUDY (CLEAR); COLOR YELLOW (YELLOW); GLUCOSE NEGATIVE (NEGATIVE); KETONE 1+ (NEGATIVE); LEUKO ESTERASE NEGATIVE (NEGATIVE); NITRITE NEGATIVE (NEGATIVE); PH 6.5 (5.0-9.0); UROBILINOGEN 0.2 E.U./dl (0.2-1.0)
[2019-04-13 01:11] LABS: EPITHELIAL CELLS 25-30
[2019-04-13 01:12] LABS: BACTERIA TRACE
[2019-04-13 06:33] LABS: BASO % 0.3 % (0.0-1.0); EOS # 0.1 10*3/uL (0.0-0.4); EOS % 0.7 % (1.0-4.0); HEMATOCRIT 40.2 % (37.0-47.0); HEMOGLOBIN 12.6 g/dl (12.0-16.0); LYMPH # 1.9 10*3/uL (1.3-4.4); LYMPH % 21.1 % (27.0-41.0); MEAN CELL VOLUME 83.2 fl (81.0-99.0); MEAN CORPUSCULAR HGB 26.1 pg (27.0-31.0); MEAN CORPUSCULAR HGB CONC 31.3 g/dl (33.0-37.0); MEAN PLATELET VOLUME 11.3 fl (9.6-12.3); MONO # 0.4 10*3/uL (0.1-1.0); MONO % 4.8 % (3.0-9.0); NEUT # 6.4 10*3/uL (2.3-7.9); NEUT % 72.8 % (47.0-73.0); PLATELET COUNT AUTOMATED 200 10*3/uL (130-400); RED BLOOD COUNT 4.83 10*6/uL (4.10-5.10); RED CELL DISTRI WIDTH 15.5 % (0-14.5); WHITE BLOOD COUNT 8.8 10*3/uL (4.8-10.8)
[2019-04-13 06:36] LABS: ALBUMIN 3.1 gm/dl (3.1-4.5); ALKALINE PHOSPHATASE 127 U/L (45-117); BUN 17 mg/dl (7-24); CHLORIDE 113 mmol/L (98-107); PHOSPHOROUS 1.8 mg/dL (2.5-4.9); POTASSIUM 3.7 mmol/L (3.5-5.1); SGOT/AST 13 IU/L (3-35); SGPT/ALT 21 U/L (12-78); SODIUM 143 mmol/L (136-145); TOTAL PROTEIN 7.3 gm/dL (6.4-8.2)
[2019-04-13 06:38] LABS: FREE T4 1.02 ng/dl (0.76-1.46)
[2019-04-13 08:00] VITALS: BP 156/80
--- NOTE | 2019-04-13 09:00 | NUR ---
Manager Union in to talk to patient. Patient states lives at home with alone. There are no steps in the home. Physician: fany jordan [facility]: none Patient's level of ADLs: INDEPENDENT Patient has working utilities: all working DME: none Follow-up physician's appointment after d/c: will be made by hospitalist nurse director upon discharge Does patient want to access PORTAL?: no Discharge plan discussed with patient, she states she lives at home alone, she states she normally gets around fine, she is independent in adls, she states she will returm home when medically stable and denies any home needs. CRISTIAN RAJAN
--- NOTE | 2019-04-13 11:30 | NUR ---
Nutritional Support Services Note: Met w/ pt on an ADA 1800 scout diet. Pt stated she had no questions regarding diet. She receives a high protein night snack daily. Her appeteite is good. Continue to encourage adequate nutrition. Will follow if needed. DODIE [employer] internship
[2019-04-13 12:00] VITALS: BP 150/68
[2019-04-13] MEDS ORDERED: HYDR25T PO (13:06)
[2019-04-13 16:00] VITALS: BP 160/58; BP 160/68
--- NOTE | 2019-04-13 16:08 | NUR ---
Nursing screen and occupational therapy referral received. Thank you. Corrine Stover OTR/L
--- NOTE | 2019-04-13 18:11 | NUR ---
ADMINISTERD 5 UNITS HUMALOG INSULIN PER SLIDING SCALE AND HCTZ ORDERED AT THIS TIME. UNABLE TO COMPLETE SCAN D/T LOSS OF WI-FI CONNECTION DURING THE SCANNING PROCESS.
--- NOTE | 2019-04-13 19:25 | NUR ---
24 HOUR CHART CHECK COMPLETE
[2019-04-13 20:00] VITALS: BP 102/64
[2019-04-14] VITALS: BP 106/64
--- NOTE | 2019-04-14 08:12 | NUR ---
PHYSICAL THERAPY Screen and PT eval received will follow thank you Janice Funes PT
--- NOTE | 2019-04-14 09:00 | NUR ---
case management visits with patient, she will return home when medically stable and denies any home needs
--- NOTE | 2019-04-14 10:30 | NUR ---
Discharge instructions reviewed with patient/family. Patient receptive and verbalizes understanding. Follow-up care arranged WITH PCP IN ONE WEEK. Written instructions given TO PATIENT PATIENT TAKEN OFF THE FLOOR VIA WHEELCHAIR, IV SITE REMOVED. SANDRA PETERSON
[2019-04-15] MEDS ORDERED: METFORMIN HYDR750 MG PO (04:11)
[2019-04-15] MEDS ORDERED: PROPAFENONE HC150 MG PO (04:13)
--- NOTE | 2019-04-15 11:00 | NUR ---
PHYSICAL THERAPY PT SCREEN COMPLETED TODAY AND PATIENT IS FOUND TO BE UP AND (I) IN ROOM AND NO PT SERVICES INDICATED AT THIS TIME. THANK YOU FOR REFERRAL CLAIRE ELIZALDE PT
== END 2019-04-14 10:30 | disposition home or self-care (01) | DRG 204 ==
LOC: ED 18:50 → 4E 21:09 → EDHOLD 21:09 → 4E 22:00
PROVIDERS: Emergency Medicine; Internal Medicine; ADMIT Internal Medicine
DX: R55 Syncope and collapse (principal); T46.2X5A Adverse effect of other antidysrhythmic drugs, initial encounter; D72.829 Elevated white blood cell count, unspecified; E03.9 Hypothyroidism, unspecified; E78.5 Hyperlipidemia, unspecified; F32.9 Major depressive disorder, single episode, unspecified; I25.10 Atherosclerotic heart disease of native coronary artery without angina pectoris; N18.3 Chronic kidney disease, stage 3 (moderate); E44.0 Moderate protein-calorie malnutrition; E11.65 Type 2 diabetes mellitus with hyperglycemia; E66.9 Obesity, unspecified; E87.8 Other disorders of electrolyte and fluid balance, not elsewhere classified; I49.5 Sick sinus syndrome; I12.9 Hypertensive chronic kidney disease with stage 1 through stage 4 chronic kidney disease, or unspecified chronic kidney disease; I48.0 Paroxysmal atrial fibrillation; E11.22 Type 2 diabetes mellitus with diabetic chronic kidney disease; Z79.4 Long term (current) use of insulin; Y92.89 Other specified places as the place of occurrence of the external cause; I25.2 Old myocardial infarction; Z87.440 Personal history of urinary (tract) infections; Z88.5 Allergy status to narcotic agent; Z91.041 Radiographic dye allergy status; Z90.49 Acquired absence of other specified parts of digestive tract; Z98.891 History of uterine scar from previous surgery; Z95.1 Presence of aortocoronary bypass graft; Z95.5 Presence of coronary angioplasty implant and graft; Z82.49 Family history of ischemic heart disease and other diseases of the circulatory system; Z83.79 Family history of other diseases of the digestive system; Z83.3 Family history of diabetes mellitus; Z79.899 Other long term (current) drug therapy; Z79.02 Long term (current) use of antithrombotics/antiplatelets; Z86.74 Personal history of sudden cardiac arrest; Z68.41 Body mass index [BMI] 40.0-44.9, adult

== ENCOUNTER 2019-04-14 21:28 | Inpatient (IN) | payer OTHER ==
[~2019-04-14] VITALS: Ht 167.6 cm; Wt 114.0 kg
[~2019-04-14 21:28] MED LIST changes: +HYDR25T PO
[2019-04-14 21:57] VITALS: BP 163/81
[2019-04-14 22:21] VITALS: BP 164/72
[2019-04-14 22:58] LABS: BASO % 0.3 % (0.0-1.0); EOS # 0.3 10*3/uL (0.0-0.4); HEMATOCRIT 40.9 % (37.0-47.0); HEMOGLOBIN 13.1 g/dl (12.0-16.0); LYMPH # 1.6 10*3/uL (1.3-4.4); MEAN CELL VOLUME 83.1 fl (81.0-99.0); MEAN CORPUSCULAR HGB 26.6 pg (27.0-31.0); MEAN PLATELET VOLUME 10.6 fl (9.6-12.3); MONO # 0.5 10*3/uL (0.1-1.0); MONO % 5.7 % (3.0-9.0); NEUT # 6.5 10*3/uL (2.3-7.9); NEUT % 72.9 % (47.0-73.0); PLATELET COUNT AUTOMATED 204 10*3/uL (130-400); RED BLOOD COUNT 4.92 10*6/uL (4.10-5.10); RED CELL DISTRI WIDTH 15.8 % (0-14.5)
[2019-04-14 23:13] VITALS: BP 151/95
[2019-04-14 23:13] LABS: BUN 15 mg/dl (7-24); CHLORIDE 110 mmol/L (98-107); CREATININE 1.08 mg/dL (0.55-1.02); POTASSIUM 3.5 mmol/L (3.5-5.1); SODIUM 141 mmol/L (136-145)
[2019-04-14 23:15] LABS: TROPONIN I 0.193 ng/ml (<0.045)
[2019-04-15] VITALS (10 sets, daily range): BP systolic 130–166; BP diastolic 52–94
[2019-04-15] MEDS ORDERED: METFORMIN HYDR750 MG PO (04:11)
[2019-04-15] MEDS ORDERED: PROPAFENONE HC150 MG PO (04:13)
[2019-04-15 06:10] LABS: ALBUMIN 3.1 gm/dl (3.1-4.5); ALKALINE PHOSPHATASE 103 U/L (45-117); BUN 14 mg/dl (7-24); CHLORIDE 110 mmol/L (98-107); CREATININE 1.06 mg/dL (0.55-1.02); PHOSPHOROUS 2.4 mg/dL (2.5-4.9); POTASSIUM 3.4 mmol/L (3.5-5.1); SGOT/AST 13 IU/L (3-35); SGPT/ALT 17 U/L (12-78); SODIUM 141 mmol/L (136-145); TOTAL PROTEIN 6.8 gm/dL (6.4-8.2)
[2019-04-15 06:15] LABS: BASO % 0.4 % (0.0-1.0); EOS # 0.3 10*3/uL (0.0-0.4); LYMPH # 2.4 10*3/uL (1.3-4.4); LYMPH % 28.7 % (27.0-41.0); MEAN CORPUSCULAR HGB 26.3 pg (27.0-31.0); MEAN CORPUSCULAR HGB CONC 31.7 g/dl (33.0-37.0); MONO # 0.5 10*3/uL (0.1-1.0); MONO % 6.2 % (3.0-9.0); NEUT # 5.1 10*3/uL (2.3-7.9); NEUT % 61.5 % (47.0-73.0); PLATELET COUNT AUTOMATED 240 10*3/uL (130-400); RED BLOOD COUNT 4.94 10*6/uL (4.10-5.10); RED CELL DISTRI WIDTH 15.9 % (0-14.5); WHITE BLOOD COUNT 8.2 10*3/uL (4.8-10.8)
[2019-04-15 06:16] LABS: TROPONIN I 0.231 ng/ml (<0.045)
[2019-04-16] VITALS: BP 143/61
[2019-04-16 07:20] LABS: ALBUMIN 3.2 gm/dl (3.1-4.5); CREATININE 1.15 mg/dL (0.55-1.02); PHOSPHOROUS 2.3 mg/dL (2.5-4.9); POTASSIUM 3.8 mmol/L (3.5-5.1)
[2019-04-16 07:31] LABS: BASO % 0.6 % (0.0-1.0); EOS # 0.3 10*3/uL (0.0-0.4); EOS % 4.4 % (1.0-4.0); HEMATOCRIT 41.9 % (37.0-47.0); HEMOGLOBIN 13.1 g/dl (12.0-16.0); LYMPH # 2.3 10*3/uL (1.3-4.4); LYMPH % 34.1 % (27.0-41.0); MEAN CELL VOLUME 82.5 fl (81.0-99.0); MEAN CORPUSCULAR HGB 25.8 pg (27.0-31.0); MEAN CORPUSCULAR HGB CONC 31.3 g/dl (33.0-37.0); MONO # 0.5 10*3/uL (0.1-1.0); MONO % 7.3 % (3.0-9.0); NEUT # 3.7 10*3/uL (2.3-7.9); NEUT % 53.3 % (47.0-73.0); PLATELET COUNT AUTOMATED 258 10*3/uL (130-400); RED BLOOD COUNT 5.08 10*6/uL (4.10-5.10); RED CELL DISTRI WIDTH 15.9 % (0-14.5); WHITE BLOOD COUNT 6.9 10*3/uL (4.8-10.8)
[2019-04-16 08:00] VITALS: BP 148/89
[2019-04-16 12:00] VITALS: BP 156/92
[2019-04-16 16:00] VITALS: BP 147/71
[2019-04-16 20:00] VITALS: BP 145/69
[2019-04-17] VITALS: BP 102/77
[2019-04-17 06:01] LABS: BASO % 0.4 % (0.0-1.0); EOS # 0.4 10*3/uL (0.0-0.4); EOS % 4.8 % (1.0-4.0); HEMATOCRIT 42.4 % (37.0-47.0); HEMOGLOBIN 13.1 g/dl (12.0-16.0); LYMPH # 2.4 10*3/uL (1.3-4.4); LYMPH % 32.3 % (27.0-41.0); MEAN CELL VOLUME 84.5 fl (81.0-99.0); MEAN CORPUSCULAR HGB 26.1 pg (27.0-31.0); MEAN CORPUSCULAR HGB CONC 30.9 g/dl (33.0-37.0); MEAN PLATELET VOLUME 10.9 fl (9.6-12.3); MONO # 0.5 10*3/uL (0.1-1.0); MONO % 6.8 % (3.0-9.0); NEUT # 4.2 10*3/uL (2.3-7.9); NEUT % 55.4 % (47.0-73.0); PLATELET COUNT AUTOMATED 231 10*3/uL (130-400); RED BLOOD COUNT 5.02 10*6/uL (4.10-5.10); RED CELL DISTRI WIDTH 15.8 % (0-14.5); WHITE BLOOD COUNT 7.5 10*3/uL (4.8-10.8)
[2019-04-17 06:02] LABS: ALBUMIN 3.1 gm/dl (3.1-4.5); ALKALINE PHOSPHATASE 101 U/L (45-117); BUN 22 mg/dl (7-24); CHLORIDE 109 mmol/L (98-107); CREATININE 1.04 mg/dL (0.55-1.02); POTASSIUM 3.9 mmol/L (3.5-5.1); SGOT/AST 12 IU/L (3-35); SGPT/ALT 20 U/L (12-78); SODIUM 140 mmol/L (136-145); TOTAL PROTEIN 6.9 gm/dL (6.4-8.2)
[2019-04-17 08:00] VITALS: BP 130/89
[2019-04-17 12:00] VITALS: BP 127/94
[2019-04-17] MEDS ORDERED: METOPROLOL SUCC50 M1 PO (12:22)
[2019-04-17] MEDS ORDERED: FLECAINIDE ACE100 M1 PO (12:22)
== END 2019-04-17 16:25 | disposition home or self-care (01) | DRG 201 ==
LOC: ED 21:28 → 4E 04-15 03:12 → EDHOLD 04-15 03:12 → 4E 04-15 03:27
PROVIDERS: Emergency Medicine Emergency Medical Services; Hospitalist; Internal Medicine; ADMIT Emergency Medicine
DX: I48.19 Other persistent atrial fibrillation (principal); E44.0 Moderate protein-calorie malnutrition; E66.9 Obesity, unspecified; Z68.30 Body mass index [BMI] 30.0-30.9, adult; E87.8 Other disorders of electrolyte and fluid balance, not elsewhere classified; E03.9 Hypothyroidism, unspecified; I25.10 Atherosclerotic heart disease of native coronary artery without angina pectoris; I48.0 Paroxysmal atrial fibrillation; E11.22 Type 2 diabetes mellitus with diabetic chronic kidney disease; N18.3 Chronic kidney disease, stage 3 (moderate); E78.5 Hyperlipidemia, unspecified; F32.9 Major depressive disorder, single episode, unspecified; R65.11 Systemic inflammatory response syndrome (SIRS) of non-infectious origin with acute organ dysfunction; I12.9 Hypertensive chronic kidney disease with stage 1 through stage 4 chronic kidney disease, or unspecified chronic kidney disease; E11.65 Type 2 diabetes mellitus with hyperglycemia; Z95.5 Presence of coronary angioplasty implant and graft; Z68.41 Body mass index [BMI] 40.0-44.9, adult; Z88.5 Allergy status to narcotic agent; Z88.8 Allergy status to other drugs, medicaments and biological substances; Z79.899 Other long term (current) drug therapy; Z95.1 Presence of aortocoronary bypass graft; Z82.49 Family history of ischemic heart disease and other diseases of the circulatory system; Z83.79 Family history of other diseases of the digestive system; Z79.4 Long term (current) use of insulin; Z79.01 Long term (current) use of anticoagulants

== ENCOUNTER 2019-09-20 17:22 | Emergency (ER) | payer OTHER ==
[~2019-09-20] VITALS: Wt 115.2 kg
[~2019-09-20 17:22] MED LIST changes: +FLECAINIDE ACE100 M1 PO; +METFORMIN HYDR750 MG PO; +METOPROLOL SUCC50 M1 PO
[2019-09-20 18:04] LABS: BASO % 0.4 % (0.0-1.0); EOS # 0.3 10*3/uL (0.0-0.4); EOS % 2.8 % (1.0-4.0); HEMATOCRIT 32.8 % (37.0-47.0); LYMPH # 2.4 10*3/uL (1.3-4.4); LYMPH % 24.2 % (27.0-41.0); MEAN CELL VOLUME 88.9 fl (81.0-99.0); MEAN CORPUSCULAR HGB 27.9 pg (27.0-31.0); MEAN CORPUSCULAR HGB CONC 31.4 g/dl (33.0-37.0); MEAN PLATELET VOLUME 10.2 fl (9.6-12.3); MONO # 0.6 10*3/uL (0.1-1.0); MONO % 6.2 % (3.0-9.0); NEUT # 6.5 10*3/uL (2.3-7.9); NEUT % 65.8 % (47.0-73.0); PLATELET COUNT AUTOMATED 232 10*3/uL (130-400); RED BLOOD COUNT 3.69 10*6/uL (4.10-5.10); WHITE BLOOD COUNT 9.9 10*3/uL (4.8-10.8)
[2019-09-20 18:15] LABS: ACT PARTIAL THROMBO TIME 24.3 SECONDS (20.0-32.1)
[2019-09-20 18:20] LABS: ALKALINE PHOSPHATASE 115 U/L (45-117); BUN 24 mg/dl (7-24); CHLORIDE 111 mmol/L (98-107); CREATININE 1.06 mg/dL (0.55-1.02); POTASSIUM 3.3 mmol/L (3.5-5.1); SGOT/AST 23 IU/L (3-35); SGPT/ALT 24 U/L (12-78); SODIUM 141 mmol/L (136-145); TOTAL PROTEIN 6.8 gm/dL (6.4-8.2)
== END 2019-09-20 20:03 | disposition home or self-care (01) ==
LOC: ED 17:22
PROVIDERS: Nurse Practitioner Family
DX: T80.89XA Other complications following infusion, transfusion and therapeutic injection, initial encounter (principal); M79.604 Pain in right leg; Z98.890 Other specified postprocedural states; Z90.49 Acquired absence of other specified parts of digestive tract; Z95.1 Presence of aortocoronary bypass graft; Z95.5 Presence of coronary angioplasty implant and graft; Z79.4 Long term (current) use of insulin; Z91.041 Radiographic dye allergy status; Z88.5 Allergy status to narcotic agent; Y92.89 Other specified places as the place of occurrence of the external cause

== ENCOUNTER 2019-10-24 19:53 | Emergency (ER) | payer OTHER ==
[~2019-10-24] VITALS: Ht 172.7 cm; Wt 111.1 kg
== END 2019-10-25 00:28 | disposition home or self-care (01) ==
LOC: ED 19:53
DX: S92.351A Displaced fracture of fifth metatarsal bone, right foot, initial encounter for closed fracture (principal); I10 Essential (primary) hypertension; E11.9 Type 2 diabetes mellitus without complications; K21.9 Gastro-esophageal reflux disease without esophagitis; Z88.8 Allergy status to other drugs, medicaments and biological substances; Z91.041 Radiographic dye allergy status; Z88.5 Allergy status to narcotic agent; Z79.899 Other long term (current) drug therapy; Z79.4 Long term (current) use of insulin; X58.XXXA Exposure to other specified factors, initial encounter; Y93.89 Activity, other specified; Y92.89 Other specified places as the place of occurrence of the external cause; Y99.8 Other external cause status

== ENCOUNTER 2020-04-11 22:26 | Emergency (ER) | payer OTHER ==
[~2020-04-11] VITALS: Ht 172.7 cm; Wt 129.3 kg
[2020-04-11 23:17] LABS: BASO % 0.2 % (0.0-1.0); EOS % 0.3 % (1.0-4.0); LYMPH # 1.5 10*3/uL (1.3-4.4); MEAN CELL VOLUME 76.8 fl (81.0-99.0); MEAN CORPUSCULAR HGB 22.7 pg (27.0-31.0); MEAN CORPUSCULAR HGB CONC 29.5 g/dl (33.0-37.0); MEAN PLATELET VOLUME 10.4 fl (9.6-12.3); MONO # 0.6 10*3/uL (0.1-1.0); MONO % 3.6 % (3.0-9.0); NEUT % 85.5 % (47.0-73.0); PLATELET COUNT AUTOMATED 234 10*3/uL (130-400); RED BLOOD COUNT 5.34 10*6/uL (4.10-5.10); RED CELL DISTRI WIDTH 17.2 % (0-14.5); WHITE BLOOD COUNT 15.2 10*3/uL (4.8-10.8)
[2020-04-11 23:33] LABS: ALBUMIN 3.2 gm/dl (3.1-4.5); ALKALINE PHOSPHATASE 120 U/L (45-117); BUN 21 mg/dl (7-24); CHLORIDE 109 mmol/L (98-107); CREATININE 1.02 mg/dL (0.55-1.02); POTASSIUM 3.6 mmol/L (3.5-5.1); SGOT/AST 16 IU/L (3-35); SGPT/ALT 23 U/L (12-78); SODIUM 139 mmol/L (136-145)
[2020-04-12] MEDS ORDERED: HYDROCODONE-AC1 EAC1 PO (02:22)
== END 2020-04-12 02:36 | disposition home or self-care (01) ==
LOC: ED 22:26
PROVIDERS: Internal Medicine
DX: S42.211A Unspecified displaced fracture of surgical neck of right humerus, initial encounter for closed fracture (principal); I12.9 Hypertensive chronic kidney disease with stage 1 through stage 4 chronic kidney disease, or unspecified chronic kidney disease; E11.22 Type 2 diabetes mellitus with diabetic chronic kidney disease; N18.30 Chronic kidney disease, stage 3 unspecified; I48.91 Unspecified atrial fibrillation; I25.10 Atherosclerotic heart disease of native coronary artery without angina pectoris; F32.9 Major depressive disorder, single episode, unspecified; E03.9 Hypothyroidism, unspecified; E66.9 Obesity, unspecified; Z88.8 Allergy status to other drugs, medicaments and biological substances; Z91.041 Radiographic dye allergy status; Z88.5 Allergy status to narcotic agent; Z79.899 Other long term (current) drug therapy; Z79.4 Long term (current) use of insulin; Z68.30 Body mass index [BMI] 30.0-30.9, adult; Z90.49 Acquired absence of other specified parts of digestive tract; Z98.890 Other specified postprocedural states; Z95.5 Presence of coronary angioplasty implant and graft; Z90.89 Acquired absence of other organs; Z98.51 Tubal ligation status; W01.0XXA Fall on same level from slipping, tripping and stumbling without subsequent striking against object, initial encounter; Y93.89 Activity, other specified; Y92.098 Other place in other non-institutional residence as the place of occurrence of the external cause; Y99.8 Other external cause status

== ENCOUNTER → 2020-08-27 | Outpatient (CLI) | payer OTHER ==
[~2020-08-27] MED LIST changes: +HYDROCODONE-AC1 EAC1 PO
== END | disposition home or self-care (01) ==
LOC: CARD 12:00
PROVIDERS: ATTEND Internal Medicine Cardiovascular Disease
DX: I34.0 Nonrheumatic mitral (valve) insufficiency (principal); I48.19 Other persistent atrial fibrillation; I10 Essential (primary) hypertension

== ENCOUNTER 2022-01-05 06:30 | Emergency (ER) | payer OTHER ==
[~2022-01-05] VITALS: Ht 167.6 cm; Wt 108.9 kg
[2022-01-05 06:47] LABS: MEAN CELL VOLUME 85.2 fl (81.0-99.0); MEAN CORPUSCULAR HGB 28.8 pg (27.0-31.0); MEAN CORPUSCULAR HGB CONC 33.8 g/dl (33.0-37.0); MEAN PLATELET VOLUME 10.7 fl (9.6-12.3); PLATELET COUNT AUTOMATED 169 10*3/uL (130-400); RED BLOOD COUNT 4.93 10*6/uL (4.10-5.10); RED CELL DISTRI WIDTH 13.2 % (0-14.5); WHITE BLOOD COUNT 20.7 10*3/uL (4.8-10.8)
[2022-01-05 06:54] LABS: MANUAL DIFF REFLEX YES
[2022-01-05 07:07] LABS: TOTAL CELLS COUNTED 100 #CELLS
[2022-01-05 07:08] LABS: PLATELET SUFFICIENCY NORMAL (NORMAL); TOXIC GRANULATION SLIGHT; VACUOLATION OF NEUTROPHILS SLIGHT
[2022-01-05 07:09] LABS: POLYCHROMASIA SLIGHT
[2022-01-05 07:39] LABS: CREATININE 1.38 mg/dL (0.55-1.02); POTASSIUM 3.2 mmol/L (3.5-5.1); TOTAL PROTEIN 7.3 gm/dL (6.4-8.2)
[2022-01-05 07:58] LABS: ACT PARTIAL THROMBO TIME 31.7 SECONDS (20.0-32.1); INTERNATIONAL NORM RATIO 1.3 (2.0-3.5)
[2022-01-05 08:13] LABS: BILIRUBIN Negative (Negative); BLOOD 2+ (Negative); CLARITY Cloudy (Clear); COLOR Yellow (Yellow); GLUCOSE 3+ (Negative); KETONE 1+ (Negative); LEUKO ESTERASE 2+ (Negative); NITRITE Negative (Negative); SPECIFIC GRAVITY >= 1.030 (1.001-1.030)
[2022-01-05 08:24] LABS: BACTERIA 3+
== END 2022-01-05 11:49 | disposition short-term general hospital (02) ==
LOC: ED 06:30
PROVIDERS: Emergency Medicine; Family Medicine
DX: A41.9 Sepsis, unspecified organism (principal); Z20.822 Contact with and (suspected) exposure to COVID-19; N12 Tubulo-interstitial nephritis, not specified as acute or chronic; R65.20 Severe sepsis without septic shock; I48.92 Unspecified atrial flutter; E11.9 Type 2 diabetes mellitus without complications; I10 Essential (primary) hypertension; E78.00 Pure hypercholesterolemia, unspecified; I12.9 Hypertensive chronic kidney disease with stage 1 through stage 4 chronic kidney disease, or unspecified chronic kidney disease; E11.22 Type 2 diabetes mellitus with diabetic chronic kidney disease; N18.30 Chronic kidney disease, stage 3 unspecified; I25.10 Atherosclerotic heart disease of native coronary artery without angina pectoris; E78.5 Hyperlipidemia, unspecified; I48.91 Unspecified atrial fibrillation; E03.9 Hypothyroidism, unspecified; Z88.8 Allergy status to other drugs, medicaments and biological substances; Z79.899 Other long term (current) drug therapy; Z90.49 Acquired absence of other specified parts of digestive tract; Z90.89 Acquired absence of other organs; Z98.890 Other specified postprocedural states; Z95.1 Presence of aortocoronary bypass graft

== ENCOUNTER 2022-02-11 12:29 | Emergency (ER) | payer OTHER ==
[~2022-02-11] VITALS: Ht 172.7 cm; Wt 99.8 kg
[~2022-02-11 12:29] MED LIST changes: +AMIODARONE HYD200 MG PO; +AMLODIPINE BES2.5 MG PO; +AMLODIPINE BESYL5 MG PO; +ATORVASTATIN CA80 M1 PO; +BASAG SOL SC; +CIPROFLOXACIN500 M4 PO; +FUROSEMIDE40 MG PO; +GABAPENTIN600 MG PO; +JARDIANCE25 MG PO; +LISINOPRIL10 M1 PO; +LISINOPRIL5 MG PO; +METOPROLOL TART50 M1 PO; +NEURONTIN600 MG PO; +NOVOLOG FL100 UNIT/2 SC; +SERTRALINE HYDR50 MG PO; +VITAMIN D350 MC2 PO
[2022-02-11 13:10] LABS: BASO % 0.3 % (0.0-1.0); EOS % 0.3 % (1.0-4.0); HEMATOCRIT 40.2 % (37.0-47.0); LYMPH # 0.9 10*3/uL (1.3-4.4); LYMPH % 9.5 % (27.0-41.0); MEAN CELL VOLUME 87.2 fl (81.0-99.0); MEAN CORPUSCULAR HGB 28.4 pg (27.0-31.0); MEAN CORPUSCULAR HGB CONC 32.6 g/dl (33.0-37.0); MEAN PLATELET VOLUME 10.8 fl (9.6-12.3); MONO # 0.5 10*3/uL (0.1-1.0); MONO % 4.6 % (3.0-9.0); NEUT # 8.3 10*3/uL (2.3-7.9); PLATELET COUNT AUTOMATED 285 10*3/uL (130-400); RED BLOOD COUNT 4.61 10*6/uL (4.10-5.10); RED CELL DISTRI WIDTH 14.6 % (0-14.5); WHITE BLOOD COUNT 9.8 10*3/uL (4.8-10.8)
[2022-02-11 13:21] LABS: ACT PARTIAL THROMBO TIME 33.7 SECONDS (20.0-32.1); INTERNATIONAL NORM RATIO 1.3 (2.0-3.5)
[2022-02-11 13:42] LABS: ALKALINE PHOSPHATASE 149 U/L (46-116); BUN 14 mg/dl (9-23); CHLORIDE 101 mmol/L (98-107); CREATININE 1.46 mg/dL (0.55-1.02); LIPASE 29 U/L (12-53); POTASSIUM 3.2 mmol/L (3.4-5.1); SGPT/ALT 21 U/L (10-49); SODIUM 137 mmol/L (136-145); TOTAL PROTEIN 7.9 gm/dL (6.0-8.0)
[2022-02-11] MEDS ORDERED: TAMIFLU 75MG CA75 MG PO ×2 (14:30→16:24)
[2022-02-11 15:43] LABS: BILIRUBIN Negative (Negative); BLOOD 1+ (Negative); CLARITY Clear (Clear); COLOR Yellow (Yellow); GLUCOSE 3+ (Negative); KETONE Trace (Negative); LEUKO ESTERASE Negative (Negative); NITRITE Negative (Negative); PH 6.5 (4.5-8.0); SPECIFIC GRAVITY 1.025 (1.001-1.030)
[2022-02-11] MEDS ORDERED: ONDANSETRON4 MG SL ×2 (17:52→17:53)
== END 2022-02-11 17:26 | disposition home or self-care (01) ==
LOC: ED 12:29 → EDHOLD 15:14 → ED 15:14
PROVIDERS: Family Medicine
DX: J10.1 Influenza due to other identified influenza virus with other respiratory manifestations (principal); Z20.822 Contact with and (suspected) exposure to COVID-19; R74.8 Abnormal levels of other serum enzymes; I25.10 Atherosclerotic heart disease of native coronary artery without angina pectoris; E11.9 Type 2 diabetes mellitus without complications; I10 Essential (primary) hypertension; Z91.041 Radiographic dye allergy status; Z88.8 Allergy status to other drugs, medicaments and biological substances; Z79.899 Other long term (current) drug therapy; Z90.49 Acquired absence of other specified parts of digestive tract; Z90.89 Acquired absence of other organs; Z98.890 Other specified postprocedural states

== ENCOUNTER 2022-07-20 14:34 | Emergency (ER) | payer OTHER ==
[~2022-07-20] VITALS: Ht 172.7 cm; Wt 98.9 kg
[~2022-07-20 14:34] MED LIST changes: +AMIODARONE HCL100 M1 PO; +LEVOFLOXACIN750 M2 PO; +NAMENDA-5 PO; +OMNICEF300 MG PO; +ONDANSETRON HYDR4 M1 PO; +ONDANSETRON4 MG SL; +TAMIFLU 75MG CA75 MG PO
[2022-07-20 18:05] LABS: BASO % 0.3 % (0.0-1.0); EOS % 0.6 % (1.0-4.0); HEMATOCRIT 42.5 % (37.0-47.0); LYMPH # 1.6 10*3/uL (1.3-4.4); LYMPH % 21.7 % (27.0-41.0); MEAN CELL VOLUME 81.3 fl (81.0-99.0); MEAN PLATELET VOLUME 10.3 fl (9.6-12.3); MONO # 0.4 10*3/uL (0.1-1.0); NEUT # 5.2 10*3/uL (2.3-7.9); NEUT % 72.1 % (47.0-73.0); PLATELET COUNT AUTOMATED 204 10*3/uL (130-400); RED BLOOD COUNT 5.23 10*6/uL (4.10-5.10); RED CELL DISTRI WIDTH 14.6 % (0-14.5); WHITE BLOOD COUNT 7.2 10*3/uL (4.8-10.8)
[2022-07-20 18:23] LABS: BILIRUBIN Negative (Negative); BLOOD 3+ (Negative); CLARITY Cloudy (Clear); COLOR Orange (Yellow); GLUCOSE 1+ (Negative); KETONE Trace (Negative); LEUKO ESTERASE 1+ (Negative); NITRITE Negative (Negative); PH 6.5 (4.5-8.0); SPECIFIC GRAVITY 1.015 (1.001-1.030); UROBILINOGEN 0.2 E.U./dl (0.0-1.0)
[2022-07-20 18:33] LABS: ALKALINE PHOSPHATASE 143 U/L (46-116); BUN 10 mg/dl (9-23); CHLORIDE 107 mmol/L (98-107); LIPASE 26 U/L (12-53); SGPT/ALT 10 U/L (10-49); TOTAL PROTEIN 7.3 gm/dL (6.0-8.0)
[2022-07-20 18:58] LABS: BACTERIA 1+; RBC TNTC rbc/hpf (0-2); WBC 16-20 wbc/hpf (0-5)
[2022-07-20] MEDS ORDERED: OMNICEF300 MG PO (23:58)
== END 2022-07-21 00:18 | disposition home or self-care (01) ==
LOC: ED 14:34
PROVIDERS: Family Medicine
DX: N39.0 Urinary tract infection, site not specified (principal); E87.6 Hypokalemia; N20.0 Calculus of kidney; E11.65 Type 2 diabetes mellitus with hyperglycemia; I10 Essential (primary) hypertension; K21.9 Gastro-esophageal reflux disease without esophagitis; I25.2 Old myocardial infarction; I46.9 Cardiac arrest, cause unspecified; Z98.51 Tubal ligation status

== ENCOUNTER → 2022-08-21 | Outpatient (CLI) | payer OTHER ==
[2022-08-21 14:55] LABS: CHOLESTEROL 145 mg/dL (<200); LDL CHOLESTEROL 70 mg/dL (9-159); TRIGLYCERIDES 99 mg/dl (<150)
== END | disposition home or self-care (01) ==
LOC: LAB 14:05
DX: I25.10 Atherosclerotic heart disease of native coronary artery without angina pectoris (principal); I48.0 Paroxysmal atrial fibrillation; I25.5 Ischemic cardiomyopathy; R06.02 Shortness of breath

== ENCOUNTER → 2022-09-04 | Outpatient (CLI) | payer OTHER ==
[2022-09-04 16:49] LABS: BILIRUBIN Negative (Negative); BLOOD 1+ (Negative); CLARITY Clear (Clear); COLOR Yellow (Yellow); GLUCOSE 2+ (Negative); KETONE Negative (Negative); LEUKO ESTERASE 2+ (Negative); NITRITE Negative (Negative); SPECIFIC GRAVITY 1.015 (1.001-1.030); UROBILINOGEN 0.2 E.U./dl (0.0-1.0)
[2022-09-04 17:46] LABS: BACTERIA 2+; MUCOUS 1+; WBC 31-40 wbc/hpf (0-5)
== END | disposition home or self-care (01) ==
LOC: LAB 16:17
PROVIDERS: ATTEND Urology
DX: R31.29 Other microscopic hematuria (principal)

== ENCOUNTER → 2022-10-07 | Outpatient (CLI) | payer OTHER ==
[2022-10-07 15:41] LABS: BASO % 0.3 % (0.0-1.0); EOS # 0.1 10*3/uL (0.0-0.4); EOS % 1.1 % (1.0-4.0); HEMATOCRIT 42.9 % (37.0-47.0); LYMPH # 1.6 10*3/uL (1.3-4.4); LYMPH % 17.3 % (27.0-41.0); MEAN CELL VOLUME 82.8 fl (81.0-99.0); MEAN CORPUSCULAR HGB 27.2 pg (27.0-31.0); MEAN CORPUSCULAR HGB CONC 32.9 g/dl (33.0-37.0); MEAN PLATELET VOLUME 10.5 fl (9.6-12.3); MONO # 0.4 10*3/uL (0.1-1.0); NEUT % 77.1 % (47.0-73.0); PLATELET COUNT AUTOMATED 225 10*3/uL (130-400); RED BLOOD COUNT 5.18 10*6/uL (4.10-5.10); RED CELL DISTRI WIDTH 14.6 % (0-14.5)
[2022-10-07 15:41] LABS: BILIRUBIN Negative (Negative); BLOOD 3+ (Negative); CLARITY Turbid (Clear); COLOR Yellow (Yellow); GLUCOSE 3+ (Negative); KETONE Negative (Negative); LEUKO ESTERASE 2+ (Negative); NITRITE Negative (Negative); PH 5.5 (4.5-8.0); SPECIFIC GRAVITY 1.025 (1.001-1.030)
[2022-10-07 15:52] LABS: INTERNATIONAL NORM RATIO 1.1 (2.0-3.5)
[2022-10-07 15:52] LABS: BACTERIA 2+; WBC 51-100 wbc/hpf (0-5)
[2022-10-07 16:08] LABS: POTASSIUM 3.9 mmol/L (3.4-5.1); TOTAL PROTEIN 7.8 gm/dL (6.0-8.0)
== END | disposition home or self-care (01) ==
LOC: LAB 14:52
PROVIDERS: ATTEND Urology
DX: Z01.818 Encounter for other preprocedural examination (principal); I48.91 Unspecified atrial fibrillation; R53.83 Other fatigue; I49.3 Ventricular premature depolarization; I51.7 Cardiomegaly; R09.89 Other specified symptoms and signs involving the circulatory and respiratory systems

== ENCOUNTER 2024-01-30 17:34 | Inpatient (IN) | payer OTHER ==
[~2024-01-30] VITALS: Ht 167.6 cm; Wt 99.6 kg
[2024-01-30 17:37] VITALS: BP 216/103
[2024-01-30] MEDS ORDERED: fentaNYL CITRATE 100 MCG/2 ML VIAL IV ONE (18:05)
[2024-01-30 18:10] LABS: BASO % 0.2 % (0.0-1.0); EOS # 0.1 10*3/uL (0.0-0.4); EOS % 0.4 % (1.0-4.0); MEAN CELL VOLUME 88.8 fl (81.0-99.0); MEAN CORPUSCULAR HGB CONC 32.7 g/dl (33.0-37.0); MEAN PLATELET VOLUME 10.5 fl (9.6-12.3); MONO # 0.6 10*3/uL (0.1-1.0); MONO % 4.1 % (3.0-9.0); NEUT # 11.5 10*3/uL (2.3-7.9); NEUT % 84.5 % (47.0-73.0); PLATELET COUNT AUTOMATED 183 10*3/uL (130-400); RED BLOOD COUNT 5.07 10*6/uL (4.10-5.10); RED CELL DISTRI WIDTH 12.9 % (0-14.5); WHITE BLOOD COUNT 13.7 10*3/uL (4.8-10.8)
[2024-01-30 18:21] LABS: ACT PARTIAL THROMBO TIME 23.6 SECONDS (20.0-32.1)
[2024-01-30] MEDS ORDERED: BISACODYL 10 MG SUPP R PRN (18:25)
[2024-01-30] MEDS ORDERED: TEMAZEPAM 15 MG CAP PO PRN (18:25)
[2024-01-30] MEDS ORDERED: BISACODYL 5 MG TAB PO PRN (18:25)
[2024-01-30] MEDS ORDERED: Magnesium Hydroxide 30 ML UDC PO PRN (18:25)
[2024-01-30] MEDS ORDERED: ACETAMINOPHEN 650 MG SUPP R PRN (18:25)
[2024-01-30] MEDS ORDERED: Ondansetron Hydrochloride 4 MG/2 ML VIAL IV PRN (18:25)
[2024-01-30] MEDS ORDERED: MORPHINE Sulfate 2 MG/ML SYR IV PRN (18:25)
[2024-01-30] MEDS ORDERED: ACETAMINOPHEN 325 MG TAB PO PRN (18:25)
[2024-01-30] MEDS ORDERED: Pantoprazole Sodium 40 MG TAB PO PRN (18:30)
[2024-01-30] MEDS ORDERED: Labetalol Hydrochloride 20 MG/4 ML SYR IV ONE (18:35)
[2024-01-30] MEDS ORDERED: LOSARTAN POTASS25 M1 PO (18:47)
[2024-01-30 18:48] VITALS: BP 233/95
[2024-01-30 19:07] VITALS: BP 188/71
[2024-01-30 19:23] VITALS: BP 188/71
[2024-01-30] MEDS ORDERED: Metoprolol Tartrate 25 MG TAB PO SCH (19:25)
[2024-01-30 19:38] VITALS: BP 183/86
[2024-01-30] MEDS ORDERED: LORazepam 1 MG TAB PO ONE (19:50)
[2024-01-30] MEDS ORDERED: HYDROmorphONE Hydrochloride 1 MG/ML SYR IV ONE (20:20)
[2024-01-30] MEDS ORDERED: HYDROmorphONE Hydrochloride 1 MG/ML SYR IV PRN (20:25)
[2024-01-30] MEDS ORDERED: DEXTROSE 10 % IN WATER 250 ML IV PRN (20:50)
[2024-01-30] MEDS ORDERED: INSULIN LISPRO 1 UNIT/0.01 ML SQ SCH (22:00)
[2024-01-30 22:30] VITALS: BP 152/61
[2024-01-30] MEDS ORDERED: SODIUM CHLORIDE 0.9% 500 ML IV ONE (23:40)
[2024-01-31] VITALS (10 sets, daily range): BP systolic 114–210; BP diastolic 63–120
[2024-01-31] MEDS ORDERED: Metoprolol Tartrate 25 MG TAB PO SCH (03:30)
[2024-01-31 06:38] LABS: BASO % 0.2 % (0.0-1.0); EOS % 0.3 % (1.0-4.0); HEMATOCRIT 42.7 % (37.0-47.0); MEAN CELL VOLUME 90.3 fl (81.0-99.0); MEAN CORPUSCULAR HGB 28.8 pg (27.0-31.0); MEAN CORPUSCULAR HGB CONC 31.9 g/dl (33.0-37.0); MEAN PLATELET VOLUME 11.3 fl (9.6-12.3); MONO # 0.7 10*3/uL (0.1-1.0); MONO % 6.5 % (3.0-9.0); NEUT % 82.9 % (47.0-73.0); PLATELET COUNT AUTOMATED 181 10*3/uL (130-400); RED BLOOD COUNT 4.73 10*6/uL (4.10-5.10); RED CELL DISTRI WIDTH 12.9 % (0-14.5); WHITE BLOOD COUNT 10.9 10*3/uL (4.8-10.8)
[2024-01-31 06:41] LABS: FREE T4 1.03 ng/dl (0.89-1.76); POTASSIUM 4.5 mmol/L (3.4-5.1); TOTAL PROTEIN 6.7 gm/dL (6.0-8.0)
[2024-01-31] MEDS ORDERED: Levothyroxine Sodium 88 MCG TAB PO SCH (07:08)
[2024-01-31 07:51] LABS: VITAMIN D, 25-HYDROXY 13.2 ng/mL (30-100)
[2024-01-31] MEDS ORDERED: Cholecalciferol 2,000 UNIT TABLET (50 MCG) PO SCH (10:00)
[2024-01-31] MEDS ORDERED: GABAPENTIN 600 MG TAB PO SCH (10:00)
[2024-01-31] MEDS ORDERED: Losartan Potassium 25 MG TAB PO SCH (10:00)
[2024-01-31] MEDS ORDERED: amLODIPine besylate 5 MG TAB PO SCH (10:00)
[2024-01-31] MEDS ORDERED: EZETIMIBE 10 MG TAB PO SCH (10:00)
[2024-01-31] MEDS ORDERED: Sertraline Hydrochloride 50 MG TAB PO SCH (10:00)
[2024-01-31] MEDS ORDERED: Lactated Ringer's Solution 0 ML IV ONE (13:50)
[2024-01-31] MEDS ORDERED: TRANEXAMIC ACID IN NACL,ISO-OS 100 ML IV ONE ×2 (14:02→15:00)
[2024-01-31] MEDS ORDERED: ceFAZolin sodium/sodium chlor 20 ML IV ONE ×2 (14:03→15:00)
[2024-01-31] MEDS ORDERED: SODIUM CHLORIDE 0.9% 1,000 ML IV ONE (14:15)
[2024-01-31] MEDS ORDERED: ACETAMINOPHEN IV ONE (14:16)
[2024-01-31] MEDS ORDERED: EPINEPHrine/Lidocaine Hydroc 20 ML VIAL ONE (14:36)
[2024-01-31] MEDS ORDERED: Bupivacaine Hydrochloride/Ep2 30 ML VIAL ONE (15:22)
[2024-01-31] MEDS ORDERED: HYDROmorphONE Hydrochloride 0.5 MG/0.5 ML SYRINGE IV PRN (16:45)
[2024-01-31] MEDS ORDERED: Metoprolol Tartrate 5 MG/5 ML VIAL IV PRN (17:05)
[2024-01-31] MEDS ORDERED: Midazolam Hydrochloride 2 MG/2 ML VIAL IV ONE (17:10)
[2024-01-31] MEDS ORDERED: fentaNYL CITRATE 100 MCG/2 ML VIAL IV ONE (17:10)
[2024-01-31] MEDS ORDERED: SEVOFLURANE 250 ML BOT INH ONE (17:10)
[2024-01-31] MEDS ORDERED: Ondansetron Hydrochloride 4 MG/2 ML VIAL IV ONE (17:10)
[2024-01-31] MEDS ORDERED: Phenylephrine Hydrochloride 1 MG/10 ML SYRINGE IV ONE (17:10)
[2024-01-31] MEDS ORDERED: Dexamethasone Sodium Phospha 4 MG/ML VIAL IV ONE (17:10)
[2024-01-31] MEDS ORDERED: PROPOFOL 200 MG/20 ML VIAL IV ONE (17:10)
[2024-01-31] MEDS ORDERED: SUGAMMADEX SODIUM 200 MG/2 ML VIAL IV ONE (17:10)
[2024-01-31] MEDS ORDERED: ROCURONIUM BROMIDE 100 MG/10 ML VIAL IV ONE (17:10)
[2024-01-31] MEDS ORDERED: Lidocaine Hydrochloride 2% 5 ML SDV IM ONE (17:10)
[2024-01-31] MEDS ORDERED: Metoprolol Tartrate 5 MG/5 ML VIAL IV ONE (17:14)
[2024-01-31] MEDS ORDERED: RIVAROXABAN 20 MG TAB PO SCH (18:00)
[2024-01-31] MEDS ORDERED: ceFAZolin sodium 1 GM in SYRINGE INFUSION 10 ML IV SCH (22:00)
[2024-01-31] MEDS ORDERED: ATORVASTATIN CALCIUM 80 MG TAB PO SCH (22:00)
[2024-02-01] VITALS: BP 174/92
[2024-02-01 06:26] VITALS: BP 150/83
[2024-02-01 06:57] LABS: POTASSIUM 4.8 mmol/L (3.4-5.1)
[2024-02-01 07:07] LABS: BASO % 0.1 % (0.0-1.0); EOS % 0.1 % (1.0-4.0); HEMATOCRIT 40.9 % (37.0-47.0); MEAN CELL VOLUME 92.3 fl (81.0-99.0); MEAN CORPUSCULAR HGB 29.1 pg (27.0-31.0); MEAN CORPUSCULAR HGB CONC 31.5 g/dl (33.0-37.0); MEAN PLATELET VOLUME 11.7 fl (9.6-12.3); MONO % 7.2 % (3.0-9.0); NEUT # 11.8 10*3/uL (2.3-7.9); NEUT % 83.2 % (47.0-73.0); PLATELET COUNT AUTOMATED 159 10*3/uL (130-400); RED BLOOD COUNT 4.43 10*6/uL (4.10-5.10); RED CELL DISTRI WIDTH 13.2 % (0-14.5); WHITE BLOOD COUNT 14.2 10*3/uL (4.8-10.8)
[2024-02-01 08:00] VITALS: BP 107/77
[2024-02-01 09:18] LABS: ALKALINE PHOSPHATASE 191 U/L (46-116); SGPT/ALT 119 U/L (5-49)
[2024-02-01] MEDS ORDERED: Metoprolol Tartrate 25 MG TAB PO ONE (09:25)
[2024-02-01] MEDS ORDERED: Metoprolol Tartrate 50 MG TAB PO SCH (10:00)
[2024-02-01 12:00] VITALS: BP 154/89
[2024-02-01 16:00] VITALS: BP 135/96
[2024-02-01] MEDS ORDERED: RIVAROXABAN 10 MG TAB PO SCH (18:00)
[2024-02-01 20:00] VITALS: BP 123/78
[2024-02-01] MEDS ORDERED: Acetaminophen/Hydrocodone 5 MG/325 MG TABLET PO PRN (20:00)
[2024-02-01 20:15] LABS: BASO % 0.3 % (0.0-1.0); EOS # 0.1 10*3/uL (0.0-0.4); EOS % 0.9 % (1.0-4.0); MEAN CORPUSCULAR HGB 29.5 pg (27.0-31.0); MEAN CORPUSCULAR HGB CONC 31.7 g/dl (33.0-37.0); MEAN PLATELET VOLUME 11.2 fl (9.6-12.3); MONO % 8.3 % (3.0-9.0); NEUT # 8.9 10*3/uL (2.3-7.9); NEUT % 75.7 % (47.0-73.0); PLATELET COUNT AUTOMATED 157 10*3/uL (130-400); RED BLOOD COUNT 3.87 10*6/uL (4.10-5.10); RED CELL DISTRI WIDTH 13.2 % (0-14.5); WHITE BLOOD COUNT 11.7 10*3/uL (4.8-10.8)
[2024-02-01 20:35] LABS: POTASSIUM 4.5 mmol/L (3.4-5.1)
[2024-02-01] MEDS ORDERED: MAGNESIUM SULFATE 50 ML IV ONE (21:00)
[2024-02-02] VITALS: BP 145/66
[2024-02-02 06:06] LABS: POTASSIUM 4.3 mmol/L (3.4-5.1); TOTAL PROTEIN 6.4 gm/dL (6.0-8.0)
[2024-02-02 06:29] LABS: BASO % 0.3 % (0.0-1.0); EOS # 0.2 10*3/uL (0.0-0.4); EOS % 1.7 % (1.0-4.0); HEMATOCRIT 37.9 % (37.0-47.0); MEAN CELL VOLUME 91.5 fl (81.0-99.0); MEAN CORPUSCULAR HGB 28.5 pg (27.0-31.0); MEAN CORPUSCULAR HGB CONC 31.1 g/dl (33.0-37.0); MONO % 8.2 % (3.0-9.0); NEUT # 9.3 10*3/uL (2.3-7.9); NEUT % 74.5 % (47.0-73.0); PLATELET COUNT AUTOMATED 153 10*3/uL (130-400); RED BLOOD COUNT 4.14 10*6/uL (4.10-5.10); WHITE BLOOD COUNT 12.5 10*3/uL (4.8-10.8)
[2024-02-02 06:55] LABS: BILIRUBIN Negative (Negative); BLOOD 1+ (Negative); CLARITY Turbid (Clear); COLOR Yellow (Yellow); GLUCOSE 1+ (Negative); KETONE Trace (Negative); LEUKO ESTERASE 3+ (Negative); NITRITE Negative (Negative); SPECIFIC GRAVITY 1.015 (1.001-1.030); UROBILINOGEN 0.2 E.U./dl (0.0-1.0)
[2024-02-02 07:50] LABS: BACTERIA 2+; WBC TNTC wbc/hpf (0-5)
[2024-02-02 08:00] VITALS: BP 107/62
[2024-02-02] MEDS ORDERED: Diltiazem Hydrochloride 100 ML IV ONE (09:40)
[2024-02-02] MEDS ORDERED: Diltiazem Hydrochloride 5 ML IV ONE (09:55)
[2024-02-02] MEDS ORDERED: Ceftriaxone Sodium 1 GM in SYRINGE INFUSION 10 ML IV SCH (10:00)
[2024-02-02 12:00] VITALS: BP 151/80
[2024-02-02] MEDS ORDERED: SODIUM CHLORIDE 0.9% 1,000 ML IV ONE (12:25)
[2024-02-02 16:00] VITALS: BP 110/84
[2024-02-02 20:00] VITALS: BP 110/71
[2024-02-02 23:00] VITALS: BP 152/62
[2024-02-03] VITALS (10 sets, daily range): BP systolic 112–188; BP diastolic 64–95
[2024-02-03] MEDS ORDERED: Diltiazem Hydrochloride 5 ML IV SCH (01:45)
[2024-02-03 05:43] LABS: POTASSIUM 3.5 mmol/L (3.4-5.1)
[2024-02-03 06:10] LABS: BASO % 0.2 % (0.0-1.0); EOS # 0.2 10*3/uL (0.0-0.4); EOS % 1.5 % (1.0-4.0); HEMATOCRIT 33.1 % (37.0-47.0); MEAN CELL VOLUME 91.4 fl (81.0-99.0); MEAN CORPUSCULAR HGB 29.3 pg (27.0-31.0); MEAN PLATELET VOLUME 12.2 fl (9.6-12.3); MONO # 0.9 10*3/uL (0.1-1.0); MONO % 8.4 % (3.0-9.0); NEUT % 78.4 % (47.0-73.0); PLATELET COUNT AUTOMATED 161 10*3/uL (130-400); RED BLOOD COUNT 3.62 10*6/uL (4.10-5.10); RED CELL DISTRI WIDTH 12.7 % (0-14.5); WHITE BLOOD COUNT 10.2 10*3/uL (4.8-10.8)
[2024-02-03] MEDS ORDERED: Labetalol Hydrochloride 20 MG/4 ML SYR IV ONE (17:10)
[2024-02-03] MEDS ORDERED: RIVAROXABAN 15 MG TAB PO SCH (18:00)
[2024-02-04] VITALS: BP 143/55
[2024-02-04 06:20] LABS: BASO % 0.5 % (0.0-1.0); EOS # 0.2 10*3/uL (0.0-0.4); EOS % 2.5 % (1.0-4.0); HEMATOCRIT 32.1 % (37.0-47.0); MEAN CELL VOLUME 92.8 fl (81.0-99.0); MEAN CORPUSCULAR HGB 28.9 pg (27.0-31.0); MEAN CORPUSCULAR HGB CONC 31.2 g/dl (33.0-37.0); MONO # 0.7 10*3/uL (0.1-1.0); MONO % 7.9 % (3.0-9.0); NEUT # 5.9 10*3/uL (2.3-7.9); NEUT % 70.4 % (47.0-73.0); PLATELET COUNT AUTOMATED 174 10*3/uL (130-400); RED BLOOD COUNT 3.46 10*6/uL (4.10-5.10); RED CELL DISTRI WIDTH 12.9 % (0-14.5); WHITE BLOOD COUNT 8.4 10*3/uL (4.8-10.8)
[2024-02-04 07:07] LABS: POTASSIUM 3.8 mmol/L (3.4-5.1)
[2024-02-04 08:00] VITALS: BP 140/82
[2024-02-04] MEDS ORDERED: METOPROLOL SUCCINATE XR 100 MG TAB PO SCH (10:00)
[2024-02-04] MEDS ORDERED: DIGOXIN 500 MCG/2 ML AMP IV ONE (10:35)
[2024-02-04 12:00] VITALS: BP 176/95
[2024-02-04] MEDS ORDERED: Perflutren Protein Type A Mi 2 ML VIAL IV ONE (14:03)
[2024-02-04 16:00] VITALS: BP 153/95
[2024-02-04 20:00] VITALS: BP 164/56
[2024-02-04 22:38] VITALS: BP 160/94
[2024-02-05] VITALS (8 sets, daily range): BP systolic 148–198; BP diastolic 62–96
[2024-02-05 06:11] LABS: TOTAL PROTEIN 6.2 gm/dL (6.0-8.0)
[2024-02-05 06:34] LABS: BASO # 0.1 10*3/uL (0.0-0.1); BASO % 0.6 % (0.0-1.0); EOS # 0.3 10*3/uL (0.0-0.4); EOS % 3.4 % (1.0-4.0); HEMATOCRIT 34.4 % (37.0-47.0); MEAN CELL VOLUME 92.5 fl (81.0-99.0); MEAN CORPUSCULAR HGB 29.8 pg (27.0-31.0); MEAN CORPUSCULAR HGB CONC 32.3 g/dl (33.0-37.0); MEAN PLATELET VOLUME 11.9 fl (9.6-12.3); MONO # 0.7 10*3/uL (0.1-1.0); MONO % 8.8 % (3.0-9.0); NEUT # 5.4 10*3/uL (2.3-7.9); NEUT % 68.6 % (47.0-73.0); PLATELET COUNT AUTOMATED 207 10*3/uL (130-400); RED BLOOD COUNT 3.72 10*6/uL (4.10-5.10); RED CELL DISTRI WIDTH 12.7 % (0-14.5); WHITE BLOOD COUNT 7.9 10*3/uL (4.8-10.8)
[2024-02-05] MEDS ORDERED: Dicyclomine Hydrochloride 10 MG CAP PO ONE (07:00)
[2024-02-05] MEDS ORDERED: DIGOXIN 500 MCG/2 ML AMP IV ONE (13:05)
[2024-02-05] MEDS ORDERED: DILTIAZEM CD 120 MG CAP PO SCH (13:05)
[2024-02-06] VITALS: BP 170/72
[2024-02-06 00:30] VITALS: BP 164/70
[2024-02-06] MEDS ORDERED: ASPIRIN 325 MG TAB PO ONE (01:00)
[2024-02-06 05:13] LABS: ALKALINE PHOSPHATASE 144 U/L (46-116); BUN 19 mg/dl (9-23); CHLORIDE 107 mmol/L (98-107); SGPT/ALT 10 U/L (5-49); TOTAL PROTEIN 6.1 gm/dL (6.0-8.0)
[2024-02-06 07:21] LABS: BASO # 0.1 10*3/uL (0.0-0.1); BASO % 0.6 % (0.0-1.0); EOS # 0.3 10*3/uL (0.0-0.4); EOS % 2.7 % (1.0-4.0); HEMATOCRIT 34.5 % (37.0-47.0); MEAN CELL VOLUME 89.6 fl (81.0-99.0); MEAN CORPUSCULAR HGB 29.6 pg (27.0-31.0); MEAN PLATELET VOLUME 11.9 fl (9.6-12.3); MONO # 0.6 10*3/uL (0.1-1.0); MONO % 5.8 % (3.0-9.0); NEUT # 7.2 10*3/uL (2.3-7.9); NEUT % 75.6 % (47.0-73.0); PLATELET COUNT AUTOMATED 232 10*3/uL (130-400); RED BLOOD COUNT 3.85 10*6/uL (4.10-5.10); RED CELL DISTRI WIDTH 12.5 % (0-14.5); WHITE BLOOD COUNT 9.5 10*3/uL (4.8-10.8)
[2024-02-06 08:00] VITALS: BP 153/66
[2024-02-06] MEDS ORDERED: ASPIRIN ENTERIC COATED 81 MG TAB PO SCH (10:00)
[2024-02-06 12:00] VITALS: BP 157/64
[2024-02-06 16:00] VITALS: BP 166/58
[2024-02-06] MEDS ORDERED: RIVAROXABAN 15 MG TAB PO SCH (18:00)
[2024-02-06 20:00] VITALS: BP 182/42; BP 182/52
[2024-02-07] VITALS: BP 148/68
[2024-02-07 05:27] LABS: POTASSIUM 4.2 mmol/L (3.4-5.1)
[2024-02-07 06:14] LABS: BASO # 0.1 10*3/uL (0.0-0.1); BASO % 0.6 % (0.0-1.0); EOS # 0.4 10*3/uL (0.0-0.4); EOS % 3.7 % (1.0-4.0); HEMATOCRIT 35.6 % (37.0-47.0); MEAN CORPUSCULAR HGB 28.8 pg (27.0-31.0); MEAN CORPUSCULAR HGB CONC 32.3 g/dl (33.0-37.0); MEAN PLATELET VOLUME 11.5 fl (9.6-12.3); MONO # 0.7 10*3/uL (0.1-1.0); MONO % 6.9 % (3.0-9.0); NEUT # 7.1 10*3/uL (2.3-7.9); NEUT % 70.4 % (47.0-73.0); PLATELET COUNT AUTOMATED 264 10*3/uL (130-400); RED CELL DISTRI WIDTH 12.4 % (0-14.5); WHITE BLOOD COUNT 10.1 10*3/uL (4.8-10.8)
[2024-02-07 08:00] VITALS: BP 160/57
[2024-02-07 11:53] VITALS: BP 148/86
[2024-02-07 16:00] VITALS: BP 147/60
[2024-02-07 20:00] VITALS: BP 150/66
[2024-02-08] VITALS: BP 145/75
[2024-02-08 08:00] VITALS: BP 138/82; BP 138/94
[2024-02-08] MEDS ORDERED: GABAPENTIN 300 MG CAP PO SCH (10:00)
[2024-02-08] MEDS ORDERED: SODIUM CHLORIDE 0.9% 1,000 ML IV ONE (10:40)
[2024-02-08] MEDS ORDERED: METOPROLOL SUC100 M1 PO (11:23)
[2024-02-08] MEDS ORDERED: NEURONTIN300 MG PO (11:23)
[2024-02-08] MEDS ORDERED: ASPIRIN ADULT L81 M2 PO (11:23)
[2024-02-08] MEDS ORDERED: HYDROCODONE-AC1 EAC1 PO (11:23)
[2024-02-08] MEDS ORDERED: DILTIAZEM HCL120 M2 PO (11:23)
[2024-02-08] MEDS ORDERED: XARE15TA PO (11:23)
[2024-02-08] MEDS ORDERED: VITAMIN D350 MCG PO (11:23)
== END 2024-02-08 13:20 | DRG 521 ==
LOC: ED 17:34 → 4E 18:08 → EDHOLD 18:08 → 4E 21:02
PROVIDERS: Orthopaedic Surgery; Physician Assistant Medical; Registered Nurse; Student in an Organized Health Care Education/Training Program; ADMIT Internal Medicine; ATTEND Internal Medicine
PROC: 0SRS0JZ Replacement of Left Hip Joint, Femoral Surface with Synthetic Substitute, Open Approach (ICD-10-PCS; principal; 2024-01-31)
DX: S72.032A Displaced midcervical fracture of left femur, initial encounter for closed fracture (principal); N17.0 Acute kidney failure with tubular necrosis; I50.32 Chronic diastolic (congestive) heart failure; N30.01 Acute cystitis with hematuria; I13.0 Hypertensive heart and chronic kidney disease with heart failure and stage 1 through stage 4 chronic kidney disease, or unspecified chronic kidney disease; I25.810 Atherosclerosis of coronary artery bypass graft(s) without angina pectoris; I48.19 Other persistent atrial fibrillation; I48.92 Unspecified atrial flutter; I16.0 Hypertensive urgency; N18.30 Chronic kidney disease, stage 3 unspecified; E11.22 Type 2 diabetes mellitus with diabetic chronic kidney disease; E78.5 Hyperlipidemia, unspecified; F32.9 Major depressive disorder, single episode, unspecified; I08.1 Rheumatic disorders of both mitral and tricuspid valves; D64.9 Anemia, unspecified; Z68.35 Body mass index [BMI] 35.0-35.9, adult; E21.3 Hyperparathyroidism, unspecified; I48.0 Paroxysmal atrial fibrillation; E11.65 Type 2 diabetes mellitus with hyperglycemia; R74.01 Elevation of levels of liver transaminase levels; W01.0XXA Fall on same level from slipping, tripping and stumbling without subsequent striking against object, initial encounter; Y93.89 Activity, other specified; R26.89 Other abnormalities of gait and mobility; E66.9 Obesity, unspecified; Y92.89 Other specified places as the place of occurrence of the external cause; Y99.8 Other external cause status; Z95.1 Presence of aortocoronary bypass graft; Z91.041 Radiographic dye allergy status; Z88.5 Allergy status to narcotic agent; Z88.8 Allergy status to other drugs, medicaments and biological substances; Z79.899 Other long term (current) drug therapy; Z90.49 Acquired absence of other specified parts of digestive tract; Z95.5 Presence of coronary angioplasty implant and graft; Z98.891 History of uterine scar from previous surgery; Z82.49 Family history of ischemic heart disease and other diseases of the circulatory system; Z79.4 Long term (current) use of insulin

== ENCOUNTER → 2024-02-17 | Outpatient (CLI) | payer OTHER ==
[~2024-02-17] MED LIST changes: +ASPIRIN ADULT L81 M2 PO; +DILTIAZEM HCL120 M2 PO; +LOSARTAN POTASS25 M1 PO; +METOPROLOL SUC100 M1 PO; +VITAMIN D350 MCG PO; +XARE15TA PO
== END | disposition home or self-care (01) ==
LOC: ORTHO 00:30
PROVIDERS: ATTEND Orthopaedic Surgery
DX: S72.032D Displaced midcervical fracture of left femur, subsequent encounter for closed fracture with routine healing (principal); X58.XXXD Exposure to other specified factors, subsequent encounter

== ENCOUNTER → 2024-03-31 | Outpatient (CLI) | payer MEDICARE | END | disposition home or self-care (01) | LOC: ORTHO 02:03 | PROVIDERS: ATTEND Orthopaedic Surgery | DX: S72.032D Displaced midcervical fracture of left femur, subsequent encounter for closed fracture with routine healing (principal); X58.XXXD Exposure to other specified factors, subsequent encounter ==

== ENCOUNTER 2024-05-27 21:34 | Inpatient (IN) | payer MEDICARE, MEDICAID ==
[~2024-05-27] VITALS: Ht 167.6 cm; Wt 87.6 kg
[~2024-05-27 21:34] MED LIST changes: -LOSARTAN POTASS25 M1 PO; +LOSARTAN POTASS50 M1 PO
[2024-05-27 21:50] VITALS: BP 170/106
[2024-05-27 22:20] VITALS: BP 151/60
[2024-05-27] MEDS ORDERED: Metoclopramide Hydrochloride 10 MG/2 ML VIAL IV ONE (22:40)
[2024-05-27] MEDS ORDERED: SODIUM CHLORIDE 0.9% 500 ML IV ONE (22:40)
[2024-05-27] MEDS ORDERED: diphenhydrAMINE hydrochloride 50 MG/ML VIAL IV ONE (22:40)
[2024-05-27 23:06] LABS: BASO % 0.3 % (0.0-1.0); EOS # 0.1 10*3/uL (0.0-0.4); HEMATOCRIT 39.3 % (37.0-47.0); MEAN CELL VOLUME 86.2 fl (81.0-99.0); MEAN CORPUSCULAR HGB 27.4 pg (27.0-31.0); MEAN CORPUSCULAR HGB CONC 31.8 g/dl (33.0-37.0); MEAN PLATELET VOLUME 10.6 fl (9.6-12.3); MONO # 0.4 10*3/uL (0.1-1.0); MONO % 4.3 % (3.0-9.0); NEUT # 8.4 10*3/uL (2.3-7.9); NEUT % 83.5 % (47.0-73.0); PLATELET COUNT AUTOMATED 232 10*3/uL (130-400); RED BLOOD COUNT 4.56 10*6/uL (4.10-5.10); RED CELL DISTRI WIDTH 12.9 % (0-14.5)
[2024-05-27 23:15] VITALS: BP 158/67
[2024-05-27 23:25] LABS: POTASSIUM 4.6 mmol/L (3.4-5.1)
[2024-05-28 01:11] LABS: BILIRUBIN Negative (Negative); BLOOD 2+ (Negative); CLARITY Turbid (Clear); COLOR Yellow (Yellow); GLUCOSE 1+ (Negative); KETONE Negative (Negative); LEUKO ESTERASE 3+ (Negative); NITRITE Positive (Negative); PH 6.5 (4.5-8.0); UROBILINOGEN 0.2 E.U./dl (0.0-1.0)
[2024-05-28 01:21] LABS: BACTERIA 3+; WBC TNTC wbc/hpf (0-5)
[2024-05-28 01:41] VITALS: BP 154/90
[2024-05-28] MEDS ORDERED: cefTRIAXone Sodium 1 GM/10 ML SYR IV ONE (01:45)
[2024-05-28] MEDS ORDERED: ACETAMINOPHEN 650 MG SUPP R PRN (02:20)
[2024-05-28] MEDS ORDERED: Magnesium Hydroxide 30 ML UDC PO PRN (02:20)
[2024-05-28] MEDS ORDERED: ACETAMINOPHEN 325 MG TAB PO PRN (02:20)
[2024-05-28] MEDS ORDERED: Ondansetron Hydrochloride 4 MG/2 ML VIAL IV PRN (02:20)
[2024-05-28] MEDS ORDERED: BISACODYL 5 MG TAB PO PRN (02:20)
[2024-05-28] MEDS ORDERED: BISACODYL 10 MG SUPP R PRN (02:20)
[2024-05-28] MEDS ORDERED: TEMAZEPAM 15 MG CAP PO PRN (02:20)
[2024-05-28] MEDS ORDERED: DEXTROSE 10 % IN WATER 250 ML IV PRN (02:25)
[2024-05-28] MEDS ORDERED: Pantoprazole Sodium 40 MG TAB PO PRN (02:25)
[2024-05-28 04:12] VITALS: BP 133/67
[2024-05-28 05:10] VITALS: BP 139/65
[2024-05-28 05:34] LABS: VITAMIN D, 25-HYDROXY 50.9 ng/mL (30-100)
[2024-05-28 06:11] LABS: BASO % 0.2 % (0.0-1.0); EOS # 0.1 10*3/uL (0.0-0.4); EOS % 0.8 % (1.0-4.0); HEMATOCRIT 36.2 % (37.0-47.0); MEAN CELL VOLUME 87.4 fl (81.0-99.0); MEAN PLATELET VOLUME 11.2 fl (9.6-12.3); MONO # 0.6 10*3/uL (0.1-1.0); MONO % 5.7 % (3.0-9.0); NEUT # 8.5 10*3/uL (2.3-7.9); NEUT % 79.9 % (47.0-73.0); PLATELET COUNT AUTOMATED 200 10*3/uL (130-400); RED BLOOD COUNT 4.14 10*6/uL (4.10-5.10); RED CELL DISTRI WIDTH 12.9 % (0-14.5); WHITE BLOOD COUNT 10.6 10*3/uL (4.8-10.8)
[2024-05-28] MEDS ORDERED: INSULIN LISPRO 1 UNIT/0.01 ML SQ SCH (07:30)
[2024-05-28 07:53] VITALS: BP 144/65
[2024-05-28] MEDS ORDERED: TYLENOL EXTRA500 MG PO (10:21)
[2024-05-28] MEDS ORDERED: CLONIDINE HCL0.1 MG PO (10:23)
[2024-05-28] MEDS ORDERED: LOPRESSOR50 M1 PO (10:53)
[2024-05-28] MEDS ORDERED: REMERON15 M2 PO (10:54)
[2024-05-28] MEDS ORDERED: OXYBUTYNIN CHL2.5 MG PO (10:55)
[2024-05-28] MEDS ORDERED: MIRALAX POWDER17 G1 PO (10:56)
[2024-05-28] MEDS ORDERED: K-TAB20 MEQ PO (10:57)
[2024-05-28] MEDS ORDERED: TRINTELLIX20 MG PO (10:58)
[2024-05-28] MEDS ORDERED: OMNICEF300 MG PO (11:50)
[2024-05-28 12:00] VITALS: BP 94/72
[2024-05-28] MEDS ORDERED: RIVAROXABAN 15 MG TAB PO SCH (18:00)
[2024-05-28] MEDS ORDERED: cefTRIAXone Sodium 1 GM in SYRINGE INFUSION 10 ML IV SCH (22:00)
== END 2024-05-28 14:31 | disposition home or self-care (01) | DRG 690 ==
LOC: ED 21:34 → EDHOLD 05-28 01:47 → 5E 05-28 04:30
PROVIDERS: Internal Medicine; Student in an Organized Health Care Education/Training Program; ADMIT Internal Medicine; ATTEND Internal Medicine
DX: N30.01 Acute cystitis with hematuria (principal); I13.0 Hypertensive heart and chronic kidney disease with heart failure and stage 1 through stage 4 chronic kidney disease, or unspecified chronic kidney disease; F33.9 Major depressive disorder, recurrent, unspecified; I50.32 Chronic diastolic (congestive) heart failure; I25.10 Atherosclerotic heart disease of native coronary artery without angina pectoris; E11.22 Type 2 diabetes mellitus with diabetic chronic kidney disease; E66.9 Obesity, unspecified; E11.65 Type 2 diabetes mellitus with hyperglycemia; E87.8 Other disorders of electrolyte and fluid balance, not elsewhere classified; E83.52 Hypercalcemia; E83.39 Other disorders of phosphorus metabolism; N18.32 Chronic kidney disease, stage 3b; E78.2 Mixed hyperlipidemia; I48.0 Paroxysmal atrial fibrillation; I27.20 Pulmonary hypertension, unspecified; Z88.8 Allergy status to other drugs, medicaments and biological substances; Z91.09 Other allergy status, other than to drugs and biological substances; Z79.899 Other long term (current) drug therapy; Z79.01 Long term (current) use of anticoagulants; Z79.2 Long term (current) use of antibiotics; Z90.49 Acquired absence of other specified parts of digestive tract; Z98.891 History of uterine scar from previous surgery; Z98.61 Coronary angioplasty status; Z79.4 Long term (current) use of insulin; Z68.31 Body mass index [BMI] 31.0-31.9, adult; Z95.1 Presence of aortocoronary bypass graft; Z82.49 Family history of ischemic heart disease and other diseases of the circulatory system; Z83.3 Family history of diabetes mellitus

== ENCOUNTER → 2024-09-11 | Outpatient (CLI) | payer OTHER ==
[~2024-09-11] MED LIST changes: +CLONIDINE HCL0.1 MG PO; +DILTIAZEM 24HR180 MG PO; +FLOMAX0.4 MG PO; +HYDRALAZINE HYD50 MG PO; +K-TAB20 MEQ PO; +LASIX40 MG PO; +LOPRESSOR50 M1 PO; +MIRALAX POWDER17 G1 PO; +OXYBUTYNIN CHL2.5 MG PO; +REMERON15 M2 PO; +TRINTELLIX20 MG PO; +TYLENOL EXTRA500 MG PO
== END | disposition home or self-care (01) ==
LOC: NM 09:38
PROVIDERS: ATTEND Internal Medicine Endocrinology, Diabetes & Metabolism
DX: E21.3 Hyperparathyroidism, unspecified (principal)